=== PATIENT | male | born 1945 | race Caucasian/White ===

== ENCOUNTER 2023-11-14 09:57 | Outpatient (AMB) | payer MEDICARE, OTHER, SELFPAY ==
--- NOTE | 2023-11-14 10:10 | A.OFFPC_ITS ---
Vital Signs 11/14/23 10:20 Height 5 ft 11 in Weight 186 lb BMI 25.9 BP 130/70 Blood Pressure Location Rt brachial Position Sitting Respiration 16 Pulse 66 Pulse Source Pulse Oximeter Temp 97.7 F Temp Source Tympanic Pulse Oximetry (%) 96 Oxygen Delivery Method Room Air Intake Visit Reasons: est care Intake Note: establish care Allergies No Known Allergies Allergy (Verified 11/14/23 10:11) Medication List - Last Reconciled 11/14/23 by Jose Manuel Zapata MD timolol maleate 0.5% 1 drp ophthalmic-Right QAM Tobacco use date assessed: 11/14/23 Fall risk assessment: No Falls in past year Last assessed Fall Risk: 11/14/23 Dental Screening Dental Screen Date: 11/14/23 Did you have a dental visit in the last 12 months?: Yes Did you have a dental problem in the last 6 months where you did not have access to dental care?: No Was dental information given to patient?: Patient has dentist HPI est care HPI Details New Patient? ?? Prior PCP:?Dr Maxwell Last office visit/CPE:?5 yrs Acute issue(s):? Cerumen impactions R t thumb splinter ?? PMHx:? [place] R [facility] [place]. SurgHx:?Carpal tunnel, Lenses b/L - cataract surgeries. 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 Nonsmoker, EtOH 2 beers on weekends. HPI Comments History of Present Illness Details Documentation assistance for Jose Manuel Zapata MD, was provided by Prasanna Burgos,? Service Center Representative on 11/14/2023 at 10:43 AM EST. I, Dr. Zapata, have read, observed, and verified documentation. 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 1. Little interest or pleasure in doing things: not at all 2. Feeling down, depressed, or hopeless: not at all 3. Trouble falling or staying asleep, or sleeping too much: not at all 4. Feeling tired or having little energy: not at all 5. Poor appetite or overeating: not at all 6. Feeling bad about yourself - or that you are a failure or have let yourself or your family down: not at all 7. Trouble concentrating on things, such as reading the newspaper or watching television: not at all 8. Moving or speaking so slowly that other people could have noticed. Or the opposite - being so fidgety or restless that you have been moving around a lot more than usual: not at all 9. Thoughts that you would be better off or of hurting yourself in some way: not at all Total score: 0 Depression Screening Interpretation: Negative Depression Screening Done: Yes 23667 - PHQ-9 Billing: Yes Source: Developed by Drs. Catarino Castro, Sallie Morel, Luis F Mahoney and colleagues, with an educational nghia from [employer]. Thrive Questionnaire Date Thrive assessed: 11/14/23 I am a: Patient What is your living situation today?: I have a steady place to live Within the past 12 months, did the food you bought not last and you didn't have the money to get more?: Never true Within the past 12 months, did you worry whether your food would run out before you got money to buy more?: Never true Do you have trouble paying for medicines?: No Do you have trouble getting transportation to medical appointments?: No Do you have trouble paying your heating and electricity bill?: No Do you have trouble taking care of your child, family member or friend?: No Do you have trouble with day-to-day activities such as bathing, preparing meals, shopping, managing finances, etc.?: No Are you currently unemployed and looking for a job?: No Are you interested in more education?: No Please select the resources that you would like help with: None Currently or been in a relationship where the following occur: No concerns reported THRIVE Score: 0 AUDIT C Alcohol Use Questionnaire (AUDIT-C) 1. How often do you have a drink containing alcohol?: 2-3 times a week 2. How many drinks containing alcohol do you have on a typical day when you are drinking?: 1 or 2 3. How often do you have six or more drinks on one occasion?: Never Total Score: 3 Score Reviewed/Action Taken: Yes VANI-7 AMB Questionnaire VANI-7 Date VANI - 7 assessed: 11/14/23 Feeling nervous, anxious, or on edge: 0 = Not at all Not being able to stop or control worryin = Not at all Worrying too much about different things: 1 = Several days Trouble relaxin = Not at all Being so restless that it is hard to sit still: 0 = Not at all Becoming easily annoyed or irritable: 0 = Not at all Feeling afraid as if something awful might happen: 0 = Not at all Total VANI-7 score (0-4 normal; 5-9 mild; 10-14 moderate; 15-21 severe): 1 Source: Developed by Drs. Catarino Castro, Sallie Morel, Luis F Mahoney and colleagues, with an educational nghia from [employer]. VANI-7 Assessment Billing VANI-7 Assessment Tool: VANI-7 Assessment [id number] Review of Systems Const Denies chills, Denies fatigue, Denies fever(s), Denies headache(s) and Denies weakness ENT Denies dizziness and Denies headache(s) Card Denies chest pain, Denies lightheadedness, Denies dyspnea and Denies other (Palpitations) Resp Denies cough, Denies dyspnea, Denies wheezing and Denies other ( shortness of breath) Musc Denies numbness and Denies tingling Neuro Denies dizziness, Denies headache(s), Denies numbness, Denies tingling, Denies paresthesias and Denies weakness Psych Denies anxiety and Denies depression Endo Denies fatigue Aller/Immun Denies wheezing Physical exam (Primary Care) Tobacco/Smoking Status: Tobacco use Status Tobacco use date assessed 11/14/23 11/14/23 10:15 Patient Tobacco Use Status Never used Tobacco 11/14/23 10:15 e-Cigarette/Vaping Use Never Used 11/14/23 10:15 PHQ-9: PHQ-9 Score PHQ-9: Total score 0 11/14/23 10:19 Depression Screening Interpretation: Negative Thrive Assessment: Date of Thrive Assessment Date Thrive assessed 11/14/23 11/14/23 10:19 Currently or been in a relationship where the following occur: No concerns reported Const General: no acute distress and well developed Nutritional Appearance: well nourished Orientation/consciousness: patient oriented x3 HENMT Other: Mild wax impaction, bilateral Head: Yes normocephalic and Yes atraumatic Eyes General: appearance normal, both eyes and all related structures Pupils: Equal, round and reactive pupils present EOM: EOMs intact bilaterally Resp Effort & Inspection: normal respiratory effort Auscultation: clear to auscultation bilaterally Cardio Rate: regular rate Rhythm: regular rhythm Heart sounds: S1 normal heart sound present, S2 normal heart sound present, no gallops, no murmurs and no rubs Neuro General: patient oriented x3 and gait normal Cranial nerves: Yes Equal, round and reactive pupils present Psych Affect: normal affect Assessment and Plan Assessment & Plan (1) Cerumen impaction: Code(s): H61.20 - Impacted cerumen, unspecified ear Plan: Mild,?bilateral?cerumen?impaction?which?are?not?interfering?with?hearing He?can?use?Debrox?drops,?OTC He?will?let?me?know?if?worsening?or?not?improving (2) Splinter: Code(s): T14.8XXA - Other injury of unspecified body region, initial encounter Plan: Splinter?in?right?thumb?which?is?extremely?tiny?( > 1mm). Patient?declines?removal?at?this?time He?can?use?warm?Epson?salt?soaks Last?tetanus?shot?only?about?5?or?6?years?ago - up-to-date He?will?let?me?know?if?he?is?having?any?further?problem?with?this. 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 Wears?protective?gear Has?not?had?a?chest?x-ray?in?a?couple?of?years Chest?x-ray?ordered (6) Laboratory exam ordered as part of routine general medical examination: Code(s): Z00.00 - Encounter for general adult medical examination without abnormal findings Plan: Check?labs Orders: Orders Complete Blood Count Auto Diff Today Z00.00 - Encounter for general adult medical examination without abnormal findings Lipid Panel Today Z00.00 - Encounter for general adult medical examination without abnormal findings TSH reflex Free T4 Today Z00.00 - Encounter for general adult medical examination without abnormal findings UA and rflx microscopic Today Z00.00 - Encounter for general adult medical examination without abnormal findings Comprehensive [place]. Panel Fast Today Z00.00 - Encounter for general adult medical examination without abnormal findings Microalbumin, Random (w Creat) Today I10 - Essential (primary) hypertension Prostate Specific Antigen Scr Today Z12.5 - Encounter for screening for malignant neoplasm of prostate XR chest 2V Today Z77.090 - Contact with and (suspected) exposure to asbestos Coding Level of Care Code New Pt Level 3 (07244) Diagnoses Cerumen impaction H61.20 Splinter T14.8XXA History of cataract Z86.69 Glaucoma H40.9 Asbestos exposure Z77.090 Laboratory exam ordered as part of routine general medical examination Z00.00 Additional Codes VANI-7 Assessment Billing - VANI-7 Assessment Tool: VANI-7 Assessment [id number] ([id number])
[2023-11-14 10:20] VITALS: BP 130/70; PULSE 66; RESP 16; TEMP 36.5; O2SAT 96; BMI 25.9
== END 2023-11-14 10:50 | disposition home or self-care (01) ==
PROVIDERS: PCP Family Medicine; Visit Provider Family Medicine
DX: H61.23 Impacted cerumen, bilateral (principal); T14.8XXA Other injury of unspecified body region, initial encounter; Z86.69 Personal history of other diseases of the nervous system and sense organs; H40.9 Unspecified glaucoma; Z77.090 Contact with and (suspected) exposure to asbestos
CPT/HCPCS: 99203

== ENCOUNTER 2024-05-02 11:10 | Outpatient (REF) | payer MEDICARE, OTHER, SELFPAY ==
--- OUTSIDE RECORDS SUMMARY | 2024-05-02 13:08 | XMS_ITS | Clinical Summary ---
Author Organization [employer] Address [address] [place] [address] [address] [place] [address] Care Team Providers Care Damper Maker Name Role Phone PcpSamina Unassigned Primary Care Provider U navailable Allergies No known active allergies Medications meloxicam (Mobic) 15 MG tablet Take 15 mg by mouth. Active hydroCHLOROthiaz cliff (HYDRODiuril) 25 MG tablet Take 25 mg by mouth in the morning. Active Misc Natural Products (GLUCOSAMINE CHOND MSM FORMULA PO) Take by mouth. Active Immunizations Name Administration Dates Next Due TD (adult), 2 Lf tetanus tox oid, preservative free, adsorbed 11/14/2018,10/11/2008 Social History Tobacco Use Types Packs/Day Years Used Date Smoking Tobacco: Never Smokeless Tobacco: Never Tobacco Cessation:Counseling Given: Not Answered Alcohol Use Standard Drinks/Week Comments Yes 2 (1 standard drink = 0.6 oz pur e alcohol) weekly Sex and Gender Information Value Date Recorded Sex Assigned at Male 03/17/2022 10:29 AM EST Legal Sex Male 5:35 PM EDT Gender Identity Male 03/17/2022 10:29 AM EST Sexual Orientation Choose not to disclose 2022 12:35 PM EDT Plan of Treatment Health Maintenance Due Date Last Done Comments Depression Screening 1945 Lipid Panel 1945 SDOH Screening 1945 Alcohol/Substance Use Screening 1959 Hepatitis C Screening 11/18/1965 Pneumococcal Vaccine: 50+ Years (1 of 1 - PCV) 11/18/1997 Zoster Vaccines (1 of 2) 11/18/1997 DTaP/Tdap/Td Vaccines (1 - Tdap) 11/15/2018 11/14/2018, 10/11/2008 RSV Patients and Patients Aged 60 years or older (1 - 1-dose 75+ series) 11/18/2022 Dental Oral Exam 07/17/2023 01/14/2023, , 06/29/2021, Additional history exists Dental Prophylaxis 07/17/2023 01/14/2023, 1 , 06/29/2021, Additional history exists COVID-19 Vaccine ( season) 2023 01/01/2022, 07/09/2021, 02/06/2021, Additional history exists Influenza Vaccine (#1) 2023 Tobacco Screening 01/15/2024 01/14/2023 Dental X-Ray: Bitewings 01/16/2024 01/15/20 23, 01/04/2022, 12/25/2020, Additional history exists Dental X-Ray: Full Mouth 01/05/2025 022, 10/03/2012, 07/05/2008 HIB Vaccines Aged Out No longer eligi ble based on patient's age to complete this topic HPV Vaccines Aged Out No longer eligi ble based on patient's age to complete this topic Hepatitis A Vaccines Aged Out No long er eligible based on patient's age to complete this topic Hepatitis B Vaccines Aged Out No long er eligible based on patient's age to complete this topic IPV Vaccines Aged Out No longer eligi ble based on patient's age to complete this topic Meningococcal Vaccine Aged Out No nasim dinh eligible based on patient's age to complete this topic RSV under 20 months Aged Out No longe r eligible based on patient's age to complete this topic Rotavirus Vaccines Aged Out No longer eligible based on patient's age to complete this topic Procedures Procedure Name Priority Date/Time Associated Diagnosis Comments Full PROPHYLAXIS - ADULT Routine 023 8:30 AM EDT BITEWINGS - 4 RADIOGRAPHIC IMAGES Routine 01/14/2023 8:30 AM EDT PERIODIC ORAL EVALUATION - ESTABLISHED PATIENT Routine 01/14/2023 8:30 AM EDT DIAGNOSTIC - DIAGNOSTIC IMAGING - INTRAORAL - COMPREHENSIVE SERIES OF RADIOGRAPHIC IMAGES Routine 01/04/2022 12:00 AM EDT from Last 3 Months or Most Recently Relevant to Health Maintenance Insurance DENTAL - [facility] PARTIAL (MEDICAID) Care Teams Damper Maker Relationship Specialty Start Date End Date PcpSamina Unassigned PCP - General Family Medicine 07/19/22
--- OUTSIDE RECORDS SUMMARY | 2024-05-02 13:08 | XMS_ITS | Encounter Summary ---
Author Organization [employer] Address [address] [place] [address] [address] [place] [address] Care Team Providers Care Stock Tracer Name Role Phone Samina Chisholm Unassigned Primary Care Provider U navailable Encounter Details Date Type Department Care Team (Latest Contact Info) Description 06/29/2021 Abstract [facility] CONVERSIONS Dental, Provider, DDS Social History Tobacco Use Types Packs/Day Years Used Date Smoking Tobacco: Never Assessed Sex and Gender Information Value Date Recorded Sex Assigned at Male 03/17/2022 10:29 AM EST Legal Sex Male 5:35 PM EDT Gender Identity Male 03/17/2022 10:29 AM EST Sexual Orientation Choose not to disclose 2022 12:35 PM EDT documented as of this encounter Plan of Treatment Not on file documented as of this encounter Visit Diagnoses Not on filedocumented in this encounter Care Teams Stock Tracer Relationship Specialty Start Date End Date Samina Chisholmssigned PCP - General Family Medicine 07/19/22 documented as of this encounter
--- OUTSIDE RECORDS SUMMARY | 2024-05-02 13:08 | XMS_ITS | Encounter Summary ---
Author Organization [employer] Address [address] [place] [address] [address] [place] [address] Care Team Providers Care Flat Spring Assembler Name Role Phone PcpSamina Unassigned Primary Care Provider U navailable Encounter Details Date Type Department Care Team (Latest Contact Info) Description 12/25/2020 Abstract [facility] CONVERSIONS Dental, Provider, DDS Social [...] on filedocumented in this encounter Care Teams Flat Spring Assembler Relationship Specialty Start Date End Date Samina Chisholmssigned PCP - General Family Medicine 07/19/22 documented as of this encounter
[2024-05-02 14:28] LABS: MANUAL DIFF FLAG NO
[2024-05-02 14:41] LABS: Basophils Percent Auto 0.2 % (0-2); Eosinophils Absolute Auto 0.2 X10*3/uL (0.0-0.4); Eosinophils Percent Auto 3.8 % (0-4); Hematocrit 47.9 % (42.0-52.0); Hemoglobin 16.6 g/dl (14.0-18.0); Imm Gran Abs Auto 0.01 X10*3/uL (0.00-0.03); Imm Gran Pct Auto 0.2 % (0.0-0.4); Lymphocytes Absolute Auto 0.7 X10*3/uL (1.2-4.9); Lymphocytes Percent Auto 14.8 % (20-40); Mean Corpuscular HGB Conc 34.7 g/dl (31.0-36.0); Mean Corpuscular Hemoglobin 32.2 pg (27.0-33.0); Mean Platelet Volume 12.8 fL (9.4-12.4); Monocytes Absolute Auto 0.6 X10*3/uL (0.1-1.2); Monocytes Percent Auto 11.7 % (2-11); Neutrophils Absolute Auto 3.4 x10*3/uL (2.0-8.3); Neutrophils Percent Auto 69.3 % (45-73); Platelet Count 132 X10*3/uL (160-400); Red Blood Count 5.15 X10*6/uL (4.60-5.80); Red Cell Distribution Width 12.3 % (11.0-16.0); White Blood Count 4.9 X10*3/uL (4.8-10.8)
[2024-05-02 14:43] LABS: Appearance Urine Clear; Color Urine Yellow; Glucose Urine UA Negative (Negative); Leukocyte Esterase Urine Negative (Negative); Nitrite Urine Negative (Negative); Urine Blood Negative (Negative); Urine Ketones Negative (Negative); Urine Protein Negative (Neg-Trace)
[2024-05-02 15:03] LABS: Prostate Specific Antigen Scr 3.83 ng/mL (<0.05-4.0)
[2024-05-02 15:04] LABS: Alanine Aminotransferase 19 U/L (0-40); Albumin Level 3.8 g/dL (3.5-5.0); Alkaline Phosphatase 88 U/L (39-117); Anion Gap 9 (12-20); Aspartate Amino Transferase 22 U/L (5-37); Blood Urea Nitrogen 16 mg/dL (9-16); Carbon Dioxide 26 mmol/L (22-29); Chloride 109 mmol/L (96-108); Cholesterol 151 mg/dL (<200); Estimated Glomerular Filt Rate > 60; Glucose Fasting 86 mg/dL (60-99); HDL Cholesterol 59 mg/dL (>40); LDL Cholesterol Calculated 84 mg/dL (<100); Potassium 4.2 mmol/L (3.3-5.1); Sodium 140 mmol/L (135-145); Triglycerides 44 mg/dL (<150)
[2024-05-02 15:20] LABS: TSH reflex Free T4 2.11 uIU/mL (0.32-4.0)
[2024-05-02 19:45] LABS: Creatinine Urine 129.42 mg/dL; Microalbum/Creatinine Ratio Ur 6.1 ug/mg cr (<30)
== END 2024-05-02 11:11 | disposition home or self-care (01) ==
LOC: HO.WFDLDS 11:10
PROVIDERS: Visit Provider Family Medicine
DX: Z00.00 Encounter for general adult medical examination without abnormal findings (principal); Z12.5 Encounter for screening for malignant neoplasm of prostate; I10 Essential (primary) hypertension
CPT/HCPCS: 36415; 80053; 80061; 81003; 82043; 82570; 84153; 84443; 85025

== ENCOUNTER 2024-05-28 09:50 | Outpatient (AMB) | payer MEDICARE, OTHER, SELFPAY ==
--- NOTE | 2024-05-28 09:54 | A.OFFVIS_ITS ---
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 THE MEDICARE ANNUAL WELLNESS VISIT (AWV) IS A YEARLY APPOINTMENT WITH A HEALTH PROFESSIONAL TO IDENTIFY HEALTH RISKS AND HELP REDUCE THEM AND TO CREATE OR UPDATE A PERSONALIZED PREVENTION PLAN. DURING A MEDICARE AWV, HEALTH PROFESSIONALS SHOULD ALSO REVIEW ANY CURRENT OPIOID PRESCRIPTIONS, DETECT ANY COGNITIVE IMPAIRMENT, AND ESTABLISH OR UPDATE MEDICAL AND FAMILY HISTORY. 78 y/o M with glaucoma, prediabetes, PVD , bph SURGHX: Carpal tunnel, Lenses b/L - cataract surgeries. 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 Nonsmoker, EtOH 2 beers on weekends. HEALTH MAINTENANCE: SEE SCANNED PREVENTATIVE MEDICINE ASSESSMENT WITH PERSONALIZED HEALTH PLAN AND SCREENING SCHEDULE. COLON: has never had one done, cologaurd ordered VACCINES: Tdap 2020, flu,covid, rsv; due for pneumococcal and shingles AAA SCREEN:n/a EKG: NSR with occasional PVC CROW OF CARE: optho dr mcleod VISUAL ACUITY: glasses, active w/ optho routine visits HEARING SCREENING: wax but otherwise no issues ACP: does not have HCP/MOLST 5 wishes provided today DIETARY/NUTRITION/EXERCISE EDU PROVIDED: Y DURING THE COURSE OF THE VISIT THE PATIENT WAS EDUCATED AND COUNSELED ABOUT APPROPRIATE SCREENING AND PREVENTATIVE SERVICES. PATIENT INSTRUCTIONS WERE PROVIDED TO THE PATIENT IN WRITTEN OR ELECTRONIC FORMAT. I HAVE REVIEWED AND VERIFIED THE ABOVE INFORMATION. History of Present Illness - The patient is a 78-year-old male pres enting for his annual Medicare wellness visit. - He has a history of glaucoma with sust ained treatment, and recent follow-ups show improvement after regular rehab physician appointments. - He shows prediabetes signs with an A1c level of 6.1%, indicating the onset of glucose dysregulation. - Occasional PVCs have been noted in daryl dowd's EKG,offers no cardiac complaints - The patient is concerned about asbesto s-related risks due to past employment, requiring periodic chest X-rays. - He underwent bilateral hip replacement and reports discomfort impacting his ability to ride horses. - Right knee pain describes degenerative changes, with the patient declining surgical intervention due to mild symptomatic relief. - The patient mentions lower back pain a ssociated with heavy lifting, started 1 year ago; got better on its own and then returned w/o overt injury; aggravated during morning activities, which improves throughout the day. - Reports vascular concerns in the legs, discomfort with prolonged inactivity, has some tingling like sensation in his ankles bilat, present for years. - Prostate issues related to mild noctur ia and high-normal PSA, feels pelvic pressure. 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 - Exercises by walking occasionally, rep orts being generally active - Vegetarian, consuming primarily fish - Engages intellectually, involved in co nsulting related to [employer] science Health Maintenance - Recent influenza, COVID-19, and RSV va ccinations reported - Recommendations for shingles and pneum ococcal vaccines made - Discussion of colon cancer screening w ith Cologuard test, pending execution - Encouraged regular exercise and health y diet for diabetes risk management Review of Systems - Ophthalmologic: Reports ongoing glauco sd care - Cardiovascular: Denies dizziness, admi ts to occasional leg discomfort - Musculoskeletal: Reports hip and knee discomfort, lower back pain in mornings - Genitourinary: Reports nocturia and se nsation of pelvic pressure Physical Exam General: Well developed, well nourished, in no acute distress. Appears stated age. Head: Normocephalic, atraumatic. Eyes: Pupils are equal, round and reactive to light and accommodation. Conju nctivae are clear. Scleras nonicteric bilat Ears: cerumen impaction bilat, declined lavage. Nose: Patent, without discharge. Neck: Supple, no adenopathy or thyromegaly. Lungs: Clear to auscultation bilaterally. No rales, rhonchi or wheeze noted. Good air flow in all benavidez. Heart: Regular rate and rhythm. Abdomen: Bowel sounds present in all quadrants. The abdomen is soft, nontender, with no masses or organomegaly noted. No hernias are noted. : Deferred. Reviewed DANDY & recommendations Pulses: Peripheral pulses are equal and palpable bilaterally decreased, varicose veins/spider veins bilat lower legs, skin intact. Signs of peripheral vascular disease noted. Extremities: No clubbing, cyanosis nor edema is noted. Neurologic: Gait and station normal. Cranial Nerves 2-12 intact. Motor strength grossly symmetrical and intact. No sensory loss. Balance normal. IBANEZ x 4. No spinal tenderness w palpation. SLR negative bilat. Skin: No rashes, ulcers, or lesions noted. Turgor is good. Skin color is good. Hair and nails are without abnormalities. Raised skin lesions noted on trunk; referral to dermatology recommended. Psych: Normal eye contact, affect and mood appropriate, and normal interactions. Patient is alert and appropriate to context. Results Results: Labs 05/02/24 abnormal CBC, PSA high end of normal 3.83, hga1c 6.1% otherwise WNL - Labs: Hemoglobin A1c at 6.1% - EKG: Sinus rhythm with occasional PVCs Discussion Notes I discussed with the patient his ongoing management of glaucoma, including the importance of maintaining regular follow-ups. We reviewed his prediabetic status and emphasized dietary and activity modifications to prevent progression to type 2 diabetes mellitus. The occasional PVCs noted on the EKG were not addressed as they were asymptomatic. I advised chest X-rays for asbestos exposure monitoring given his previous occupational risk. We discussed the implications of his knee osteoarthritis, and the patient expressed a preference against surgical intervention. Check Xray. For his lower back pain, I've recommended obtaining spinal imaging and managing posture. There is a concern for his back pain correlates w/ BPH sx and high normal PSA - for prostate health, given his prostate-specific antigen levels and symptoms, referral to urology for further evaluation was recommended. Upon reviewing symptoms suggestive of vascular insufficiency, I advised consultation with a vascular specialist.. I emphasized the importance of completing at-home colon cancer screening. We agreed upon revisiting general health concerns in six months to reassess lab results, alongside any diagnostic findings from referred specialists. Assessment and Plan 1. Glaucoma: The patient's management in volves adherence to eye drop treatments and regular follow-ups, with past intervention including laser therapy to manage intraocular pressure and optic nerve health. 2. Prediabetes: Lifestyle changes, inclu ding exercise and dietary modifications, are recommended. The patient is advised to maintain regular follow-ups to monitor HbA1c levels and prevent progression to diabetes. 3. Occasional PVCs: The patient displaye d PVCs on EKG without symptomatic presentation, suggesting benign presentation not requiring intervention. 4. Asbestos exposure: Surveillance throu chest X-rays is recommended due to past occupational exposure to asbestos, with further monitoring deemed necessary. 5. Degenerative joint disease of the kne es: Patient reports knee discomfort primarily associated with prolonged sitting. Non-surgical options and monitoring of progression are the current approach. 6. Lower back pain: Pain following physi esme strain and aggravated by sleep posture is under evaluation with planned imaging to explore underlying causes. 7. Peripheral vascular disease: Lower li mb symptoms warrant referral to a vascular specialist for assessment and management, indicating potential arteriovenous dysfunction. 8. Potential prostate hypertrophy: Noctu stephanie and elevated PSA suggest further evaluation by a urologist to investigate potential prostate enlargement or malignancy. Patient Instructions - Schedule and attend the recommended im aging studies including chest, knee, and back X-rays. - Follow up with the vascular specialist for evaluation of leg discomfort. - Consult a urologist for prostate evalu ation and management. - Adhere to glaucoma management with pre scribed drops and rehab physician visits. - Incorporate healthful lifestyle change s, including dietary adjustments and increased physical activity. - Complete and return the Cologuard test for colon cancer screening. - Use earwax-softening drops as advised and consider ear cleaning if required. - Undergo dermatological evaluation for skin lesions. - Continue monitoring and managing knee and hip discomfort. RTO 6 months repeat labs 1 week before CBC and A1c. Consent Patient was informed and verbally consented to the use of an ambient scribe for clinic note documentation during this visit. An additional 40 minutes was spent addressing the problem(s) noted at todays visit. This includes time spent before the visit reviewing the chart, time spent during the visit, and time spent after the visit on documentation reviewing laboratory results, diagnostic imaging, medications, performing a medically necessary evaluation, counseling on diagnoses, care coordination, ordering appropriate tests, ordering appropriate medications, review of tests performed by other providers, reporting test results with the patient, communication with other healthcare providers. COUNTS INCLUDE 234 BEDS AT THE [facility] Medical History (Updated 05/28/24 @ 13:04 by Ashanti Sy, [facility]) Carpal tunnel syndrome Glaucoma Surgical History (Updated 11/14/23 @ 10:33 by Prasanna Burgos) H/O bilateral hip replacements Social History (Updated 11/14/23 @ 10:15 by Janet Carbajal 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 Current occupational exposures/hazards: Yes Cognitive needs: No Hearing needs: No Vision needs: Yes Questionnaire Medicare Wellness Checkup What [age]?: [age] What gender do you identify with?: male During the past 4 weeks, how much have you been bothered by emotional problems such as feeling anxious, depressed, irritable, sad or downhearted, and blue?: not at all During the past 4 weeks, has your physical & emotional health limited your social activities with family, friends, neighbors, or groups?: not at all During the past 4 weeks, how much bodily pain have you generally had?: no pain During the past 4 weeks, was someone available to help you if you needed & wanted help?: yes, as much as I wanted During the past 4 weeks, what was the hardest physical activity you could do for at least 2 minutes?: very heavy Can you get to places out of walking distance without help? (For eg., can you travel alone on buses, taxis or drive your car?): Yes Can you go shopping for groceries or clothes without someone's help?: Yes Can you prepare your own meals?: Yes Can you do your housework without help?: Yes Because of any health problems, do you need the help of another person with your personal care needs such as eating, bathing, dressing or getting around the house?: No Can you handle your own money without help?: Yes During the past 4 weeks, how would you rate your health in general?: excellent During the past 4 weeks how have things been going for you?: very well; could hardly better Are you having difficulties driving your car?: yes, often Do you always fasten your seat belt when you are in a car?: no During past 4 weeks, have you been bothered by the following: never: Falling or dizzy when standing up, Sexual problems?, Trouble eating well?, Teeth or denture problems?, Problems using the telephone? and Tiredness or fatigue? Have you fallen 2 or more times in the past year?: No Are you afraid of falling?: No Are you a smoker?: no During the past 4 weeks, how many drinks of wine, beer, or other alcoholic beverages did you have?: 1 drink or less per week Do you exercise for about 20 minutes 3 or more times a week?: yes, most of the time Have you been given information to help with the following?: no: Hazards in your house that might hurt you? and no: Keeping track of your medications? How often do you have trouble taking medicines the way you have been told to take them?: I always take medicine as prescribed How confident are you that you can control & manage most of your health problems?: very confident What is your race?: White Activity of Daily Living Bathing - sponge bath, tub bath or shower: receives no assistance (gets in/out by self, if usual bathing means Dressing - getting clothes from closets & drawers, including inner/outer garments & fasteners.: gets clothes & gets completely dressed without help Toileting - going to the 'toilet room' for urine/bowel elimination & cleaning self/arranging clothes: goes to toilet room, cleans self, arranges clothes without help Transfer: moves in & out of bed and chair without help (may use support object) Continence: controls urination/bowel movements completely by self Feeding: feeds self without help Total Score: 0 Information obtained from: patient Using telephone: independent Traveling: independent Shopping: independent Preparing meals: independent Housework: independent Taking medicine: independent Managing money: independent PHQ-9 Over the last 2 weeks, how often have you been bothered by any of the following problems? 1. Little interest or pleasure in doing things: not at all 2. Feeling down, depressed, or hopeless: not at all 3. Trouble falling or staying asleep, or sleeping too much: not at all 4. Feeling tired or having little energy: not at all 5. Poor appetite or overeating: not at all 6. Feeling bad about yourself - or that you are a failure or have let yourself or your family down: not at all 7. Trouble concentrating on things, such as reading the newspaper or watching television: not at all 8. Moving or speaking so slowly that other people could have noticed. Or the opposite - being so fidgety or restless that you have been moving around a lot more than usual: not at all 9. Thoughts that you would be better off or of hurting yourself in some way: not at all Total score: 0 Depression Screening Interpretation: Negative Depression Screening Done: Yes 66464 - PHQ-9 Billing: Yes Source: Developed by Drs. Catarino Castro, Sallie Morel, Luis F Mahoney and colleagues, with an educational nghia from [employer]. Physical Exam Vital Signs: Last Vital Signs Temp 97.1 F 05/28/24 10:18 Pulse 60 05/28/24 10:18 Resp 13 05/28/24 10:18 BP 142/80 H 05/28/24 10:18 Pulse Ox 95 05/28/24 10:18 Oxygen Delivery Method Room Air 05/28/24 10:18 BMI result Body Mass Index 26.5 Office Procedures EKG 20186-[id number], Complete Vision Screening Right Eye: 20/30 Left Eye: 20/15 Bilateral: 20/15 Color: Pass Corrected: Fail 92712 - Vision Screening Assessment & Plan Assessment & Plan (1) Encounter for subsequent annual wellness visit (AWV) in Medicare patient: Code(s): Z00.00 - Encounter for general adult medical examination without abnormal findings (2) ACP (advance care planning): Code(s): Z71.89 - Other specified counseling (3) Prediabetes: Code(s): R73.03 - Prediabetes (4) Asbestos exposure: Code(s): Z77.090 - Contact with and (suspected) exposure to asbestos (5) Right knee pain: Code(s): M25.561 - Pain in right knee Qualifiers: Chronicity: chronic Qualified Code(s): M25.561 - Pain in right knee; G89.29 - Other chronic pain (6) Low back pain: Code(s): M54.50 - Low back pain, unspecified Qualifiers: Back pain laterality: midline Chronicity: chronic Sciatica presence: without sciatica Qualified Code(s): M54.50 - Low back pain, unspecified; G89.29 - Other chronic pain (7) PVD (peripheral vascular disease): Code(s): I73.9 - Peripheral vascular disease, unspecified (8) BPH (benign prostatic hyperplasia): Code(s): N40.0 - Benign prostatic hyperplasia without lower urinary tract symptoms Qualifiers: Lower urinary tract symptom presence: symptoms present Lower urinary tract symptom detail: nocturia Qualified Code(s): N40.1 - Benign prostatic hyperplasia with lower urinary tract symptoms; R35.1 - Nocturia (9) Atypical pigmented skin lesion: Code(s): L81.9 - Disorder of pigmentation, unspecified (10) Laboratory exam ordered as part of routine general medical examination: Code(s): Z00.00 - Encounter for general adult medical examination without abnormal findings Plan . Orders: Orders XR chest 2V Today Z77.090 - Contact with and (suspected) exposure to asbestos XR knee RT 4V Today M25.561 - Pain in right knee XR lumbar spine 6V w bending Today G89.29 - Other chronic pain, M54.50 - Low back pain, unspecified Hemoglobin A1c 6 Months Z00.00 - Encounter for general adult medical examination without abnormal findings AMB EKG-In Office Today Z13.6 - Encounter for screening for cardiovascular disorders Complete Blood Count no Diff 6 Months Z00.00 - Encounter for general adult medical examination without abnormal findings Referrals Vascular Surgery Referral I73.9 - Peripheral vascular disease, unspecified Urology Referral G89.29 - Other chronic pain, M54.50 - Low back pain, unspecified, N40.0 - Benign prostatic hyperplasia without lower urinary tract symptoms Cologuard Test Z12.11 - Encounter for screening for malignant neoplasm of colon, Z12.12 - Encounter for screening for malignant neoplasm of rectum Dermatology Referral L81.9 - Disorder of pigmentation, unspecified Patient Instructions: Health screenings for men You should visit your health care provider regularly, even if you feel healthy. The purpose of these visits is to: Screen for medical issues Assess your risk for future medical problems Encourage a healthy lifestyle Update vaccinations and other preventive care services Help you get to know your provider in case of an illness Information Even if you feel fine, you should still see your provider for regular checkups. These visits can help you avoid problems in the future. For example, the only way to find out if you have high blood pressure is to have it checked regularly. High blood sugar and high cholesterol level also may not have any symptoms in the early stages. Simple blood tests can check for these conditions. There are specific times when you should see your provider or receive specific health screenings. The [place] Preventive Services Task Force publishes a list of recommended screenings. Below are screening guidelines for men ages 40 to 64. BLOOD PRESSURE SCREENING Have your blood pressure checked at least once every year. Watch for blood pressure screenings in your area. Ask your provider if you can stop in to have your blood pressure checked. Ask your provider if you need your blood pressure checked more often if: You have diabetes, heart disease, kidney problems, or are overweight or have certain other health conditions You have a first-degree relative with high blood pressure You are Black Your blood pressure top number is from 120 to 129 mm Hg, or the bottom number is from 70 to 79 mm Hg If the top number is 130 mm Hg or greater or the bottom number is 80 mm Hg or greater, this is considered stage 1 hypertension. Schedule an appointment with your provider to learn how you can lower your blood pressure. Effects of age on blood pressure CHOLESTEROL SCREENING Cholesterol screening should begin at age 35 for men with no known risk factors for coronary heart disease. Repeat cholesterol screening should take place: Every 5 years for men with normal cholesterol levels More often if changes occur in lifestyle (including weight gain and diet) More often if you have diabetes, heart disease, kidney problems, or certain other conditions COLORECTAL CANCER SCREENING If you are under age 45, talk to your provider about getting screened. You may need to be screened if you have a strong family history of colon cancer or polyps. Screening may also be considered if you have risk factors such as a history of inflammatory bowel disease or polyps. If you are age 45 to 75, you should be screened for colorectal cancer. There are several screening tests available: A stool-based fecal occult blood (gFOBT) or fecal immunochemical test (FIT) every year A stool sDNA test every 1 to 3 years Flexible sigmoidoscopy every 5 years or every 10 years with stool testing FIT done every year CT colonography (virtual colonoscopy) every 5 years Colonoscopy every 10 years You may need a colonoscopy more often if you have risk factors for colorectal cancer, such as: Ulcerative colitis A personal or family history of colorectal cancer A history of growths in your colon called adenomatous polyps DENTAL EXAM Go to the dentist once or twice every year for an exam and cleaning. Your dentist will evaluate if you have a need for more frequent visits. DIABETES SCREENING All adults who do not have risk factors for diabetes should be screened starting at age 35 and repeated every 3 years. If you have other risk factors for diabetes, such as a first degree relative with diabetes, overweight or obesity, high blood pressure, prediabetes, or a history of heart disease, you may be tested more often. If you are overweight and have other risk factors, such as high blood pressure and are planning to become , screening is recommended. EYE EXAM Have an eye exam every 2 to 4 years ages 40 to 54 and every 1 to 3 years ages 55 to 64. Your provider may recommend more frequent eye exams if you have vision problems or glaucoma risk. Have an eye exam that includes an examination of your retina (back of your eye) at least every year if you have diabetes. IMMUNIZATIONS Commonly needed vaccines include: Flu shot: get one every year COVID-19 vaccine: ask your provider what is best for you Tetanus-diphtheria and acellular pertussis (Tdap) vaccine: have as one of your tetanus-diphtheria vaccines if you did not receive it as an adolescent Tetanus-diphtheria: have a booster (or Tdap) every 10 years Varicella vaccine: receive 2 doses if you never had chickenpox or the varicella vaccine and were born in 1979 or after Hepatitis B vaccine: receive 2, 3, or 4 doses, depending on your exact circumstances, if you did not receive these as a child or adolescent, until age 59 Shingles (herpes zoster) vaccine: at or after age 50 Ask your provider if you should receive other immunizations, especially if you have certain medical conditions, such as diabetes or are at increased risk for some diseases such as pneumonia. INFECTIOUS DISEASE SCREENING Screening for hepatitis C: all adults ages 18 to 79 should get a one-time test for hepatitis C. Screening for human immunodeficiency virus (HIV): all people ages 15 to 65 should get a one-time test for HIV. Depending on your lifestyle and medical history, you may need to be screened for infections such as syphilis, chlamydia, and other infections. LUNG CANCER SCREENING You should have an annual screening for lung cancer with low-dose computed tomography (LDCT) if: You are age 50 to 80 years AND You have a 20 pack-year smoking history AND You currently smoke or have quit within the past 15 years OSTEOPOROSIS SCREENING If you are age 50 to 64 and have risk factors for osteoporosis, you should discuss screening with your provider. Risk factors can include long-term steroid use, low body weight, smoking, heavy alcohol use, having a fracture after age 50, or a family history of hip fracture or osteoporosis. Osteoporosis PHYSICAL EXAM All adults should visit their provider from time to time, even if they are healthy. The purpose of these visits is to: Screen for diseases Assess risk of future medical problems Encourage a healthy lifestyle Update vaccinations and other preventive care services Maintain a relationship with a provider in case of an illness Your height, weight, and body mass index (BMI) should be checked at every exam. During your exam, your provider may ask you about: Depression and anxiety Diet and exercise Alcohol and tobacco use Safety, such as use of seat belts and smoke detectors Your medicines and risk for interactions PROSTATE CANCER SCREENING If you're 55 through 69 years old, before having the test, talk to your provider about the pros and cons of having a PSA test. Ask about: Whether screening decreases your chance of dying from prostate cancer. Whether there is any harm from prostate cancer screening, such as side effects from testing or overtreatment of cancer when discovered. Whether you have a higher risk of prostate cancer than others. If you are age 55 or younger, screening is not generally recommended. You should talk with your provider about if you have a higher risk for prostate cancer. Risk factors include: Having a family history of prostate cancer (especially a brother or father) Being If you choose to be tested, the PSA blood test is repeated over time (yearly or less often), though the best frequency is not known. Prostate examinations are no longer routinely done on men with no symptoms. Prostate cancer SKIN EXAM Your provider may check your skin for signs of skin cancer, especially if you're at high risk. People at high risk include those who have had skin cancer before, have close relatives with skin cancer, or have a weakened immune system. TESTICULAR EXAM The US Preventive Services Task Force (USPSTF) now recommends against performing testicular self-exams. Doing testicular self-exams has been shown to have little to no benefit. Quality Reporting (2020) Adult ([facility] 138/2//69) Smoking risk assessment performed?: Yes Patient Tobacco Use Status: Never used Tobacco Depression screening performed: Yes Screen Results: Yes Negative screen Systolic BP not done?: No Diastolic BP not done?: No BMI screening not done: No Sexual Activity Screening ([facility] 153) Sexually active?: Yes Immunizations ([facility] 147, 117) Annual Influenza Vaccine: Yes Measles Antibody Test: No Mumps Antibody Test: No Rubella Antibody Test: No Varicella Antibody Test: No Anti Hepatitis A IgG Antigen test: No Anti Hepatitis B Virus Surface Ab test: No Fall Risk Screening ([facility] 139) Last assessed Fall Risk: 05/28/24 Fall risk assessment: No Falls in past year Dementia Assessment ([facility] 149) Cognitive assessment recorded: Yes Assessment of cognition with standardized tool: Yes Depression/Bipolar (159/160/161/177) PHQ-9: Total score: 0 Ophthalmol:Cataracts Visual Acuity (133) Visual acuity exam performed: Yes (see results) Coding Level of Care Code Medicare Subsequent (G0439) Est Pt Level 5 (60150) Diagnoses Encounter for subsequent annual wellness visit (AWV) in Medicare patient Z00.00 ACP (advance care planning) Z71.89 Prediabetes R73.03 Asbestos exposure Z77.090 Chronic pain of right knee M25.561; G89.29 Chronicity: chronic Chronic midline low back pain without sciatica M54.50; G89.29 Back pain laterality: midline Chronicity: chronic Sciatica presence: without sciatica PVD (peripheral vascular disease) I73.9 Benign prostatic hyperplasia with nocturia N40.1; R35.1 Lower urinary tract symptom presence: symptoms present Lower urinary tract symptom detail: nocturia Atypical pigmented skin lesion L81.9 Laboratory exam ordered as part of routine general medical examination Z00.00 CPT Codes Advance Care Planning - Advance Care Planning discussion: On file, no changes ([id number]) Advance Care Planning - Time spent: 1-15 minutes, not on file ([id number]) EKG - CPT: 57383-[id number], Complete ([id number]) Vision Screening - Vision Screenin - Vision Screening ([id number]) Additional Codes PHQ-9 - 95964 - PHQ-9 Billing: Yes ([id number]) Advance Care Planning Advance Care Planning discussion: On file, no changes Date of discussion: 05/28/24 Who was present: self Forms completed: Health Care Proxy, MOLST, Comfort care/DNR and Living will Time spent: 1-15 minutes, not on file Actual minutes spent: 5
[2024-05-28 10:18] VITALS: BP 142/80; PULSE 60; RESP 13; TEMP 36.2; O2SAT 95; BMI 26.5
--- OUTSIDE RECORDS SUMMARY | 2024-05-28 10:44 | XMS_ITS | Clinical Summary ---
Author Organization [employer] Address [address] [place] [address] [address] [place] [address] Care Team Providers Care Public Information Specialist Name Role Phone PcpSamina Unassigned Primary Care [...] ESTABLISHED PATIENT Routine 01/14/2023 8:30 AM EDT INTRAORAL - COMPLETE SERIES OF RADIOGRAPHIC IMAGES Routine 01/04/2022 12:00 AM EDT from Last 3 Months or Most Recently Relevant to Health Maintenance Insurance DENTAL - HSN PARTIAL (MEDICAID) Care Teams Public Information Specialist Relationship Specialty Start Date End Date PcpSamina Unassigned PCP - General Family Medicine 07/19/22
--- OUTSIDE RECORDS SUMMARY | 2024-05-28 10:44 | XMS_ITS | Encounter Summary ---
Author Organization [employer] Address [address] [place] [address] [address] [place] [address] Care Team Providers Care Striker Off Name Role Phone Samina Chisholm Unassigned Primary [...] on filedocumented in this encounter Care Teams Striker Off Relationship Specialty Start Date End Date Samina Chisholmssigned PCP - General Family Medicine 07/19/22 documented as of this encounter
--- OUTSIDE RECORDS SUMMARY | 2024-05-28 10:44 | XMS_ITS | Encounter Summary ---
Author Organization [employer] Address [address] [place] [address] [address] [place] [address] Care Team Providers Care Vulcan Crewmember Name Role Phone Saimna Chisholm Unassigned Primary Care Provider U navailable [...] on filedocumented in this encounter Care Teams Vulcan Crewmember Relationship Specialty Start Date End Date Samina Chisholmssigned PCP - General Family Medicine 07/19/22 documented as of this encounter
== END 2024-05-28 11:11 | disposition home or self-care (01) ==
PROVIDERS: PCP Family Medicine; Visit Provider Nurse Practitioner Family
DX: Z00.00 Encounter for general adult medical examination without abnormal findings (principal); I73.9 Peripheral vascular disease, unspecified; R73.03 Prediabetes; Z71.89 Other specified counseling; Z77.090 Contact with and (suspected) exposure to asbestos; M54.50 Low back pain, unspecified; M25.561 Pain in right knee; G89.29 Other chronic pain; N40.1 Benign prostatic hyperplasia with lower urinary tract symptoms; R35.1 Nocturia; L81.9 Disorder of pigmentation, unspecified; Z01.00 Encounter for examination of eyes and vision without abnormal findings

== ENCOUNTER → 2024-05-28 09:50 | Outpatient (BNVA) | payer MEDICARE, OTHER, SELFPAY | PROVIDERS: PCP Family Medicine; Visit Provider Nurse Practitioner Family | DX: Z00.00 Encounter for general adult medical examination without abnormal findings (principal); Z71.89 Other specified counseling; R73.03 Prediabetes; Z77.090 Contact with and (suspected) exposure to asbestos; M25.561 Pain in right knee; G89.29 Other chronic pain; M54.50 Low back pain, unspecified; I73.9 Peripheral vascular disease, unspecified; N40.1 Benign prostatic hyperplasia with lower urinary tract symptoms; R35.1 Nocturia; L81.9 Disorder of pigmentation, unspecified | CPT/HCPCS: 93005; 96127; 99212 ==

== ENCOUNTER 2024-06-05 09:30 | Outpatient (AMB) | payer MEDICARE, OTHER, SELFPAY ==
[2024-06-05 09:32] VITALS: BMI 26.5
--- NOTE | 2024-06-05 09:32 | MHC.OFFVIS ---
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 Pt states both are equal, states he gets hot and achy ankles and feet. 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 Complaints include discomfort, swelling of lower extremities, fatigue, and heaviness of the lower extremities. It has been affecting their daily activities including working and sitting. It is noted in bilateral legs. He is not a cigarette smoker and is a diabetic, not on any medications. He states he generally is very active but in the last year has been more sedentary due to work. He has not had any injuries to his legs. He states he has complaints of some warmth in his feet that occur after being sedentary or after driving. Patient denies any previous venous surgery or injections. Patient denies any history of DVT/ PE. Patient denies any history of phlebitis. Trial of compression includes - nothing currently They now present for vascular evaluation regarding their varicose veins. 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 Current occupational exposures/hazards: Yes Cognitive needs: No Hearing needs: No Vision needs: Yes Review of Systems Const Reports as per HPI and Denies weakness ENT Reports Normal hearing present and Denies dizziness Card Reports as per HPI, Denies chest pain, Denies chest pain at rest, Denies chest pain with activity, Denies dyspnea and Denies dyspnea on exertion Resp Reports as per HPI, Denies cough, Denies dyspnea and Denies dyspnea on exertion GI Reports as per HPI, Denies abdominal pain, Denies nausea and Denies vomiting Musc Denies numbness Skin/Breast Reports as per HPI, Denies erythema and Denies wounds Neuro Reports Normal hearing present, Denies dizziness, Denies numbness, Denies Sensory deficit (Neuro) and Denies weakness Psych Reports no additional complaints Endo Reports no additional complaints Physical Exam Vital Signs: BMI result Body Mass Index 26.5 Neuro Cranial nerves: Yes Normal hearing present Sensory Exam: No Sensory deficit (Neuro) Extrem Other: Bilateral lower extremities: Discoloration noted around the ankles with significant amount of spider veins. Trace peripheral edema noted. Palpable DP and PT pulses. CEAP: C - 3/4 E - primary A - superficial P - reflux Assessment & Plan Assessment & Plan (1) Varicose veins of both lower extremities with inflammation: Code(s): I83.11 - Varicose veins of right lower extremity with inflammation; I83.12 - Varicose veins of left lower extremity with inflammation Category: Medical Plan: Nolberto is presenting today on a referral from his PCP for concerns of bilateral lower extremity swelling and discomfort, progressing over the last year or so. In short, the patient has evidence of venous insufficiency. I have discussed the pathophysiology with the patient. In addition I have provided informational material regarding venous disease to the patient. We have discussed conservative measures including compression, elevation, and exercise. We are able to provide him with compression stockings today. I have taken the liberty of ordering venous insufficiency testing with the patient. They will follow up with me after testing. The patient had an opportunity to ask questions regarding the treatment plan. All questions were answered. Imaging studies, laboratory studies and physical exam results were discussed and reviewed in detail. No major barriers to understanding were identified. The patient expressed understanding and agreement with the above treatment plan. The patient is aware they should contact our office by phone for worsening of the current condition or the appearance of new symptoms. Thank you for allowing me to participate in the vascular care of this patient. If you have any questions or concerns regarding the treatment for the above condition please do not hesitate to contact me. The office telephone contact is [phone]. This note is constructed using voice recognition software. While every effort has been made to ensure accuracy, human resources project manager errors may have been included. Thank you for allowing me to participate in the care of your patient. Yours sincerely, DONA Albright Orders: Orders US venous duplex LE BI 1 Week I83.11 - Varicose veins of right lower extremity with inflammation, I83.12 - Varicose veins of left lower extremity with inflammation Coding Level of Care Code New Pt Level 4 (90955) Diagnoses Varicose veins of both lower extremities with inflammation I83.11; I83.12
== END 2024-06-05 10:15 | disposition home or self-care (01) ==
LOC: HO.HVS 09:30
PROVIDERS: PCP Family Medicine; Visit Provider Physician Assistant Surgical
DX: I83.11 Varicose veins of right lower extremity with inflammation (principal); I83.12 Varicose veins of left lower extremity with inflammation
CPT/HCPCS: 99204

== ENCOUNTER → 2024-06-05 09:30 | Outpatient (BNVA) | payer MEDICARE, OTHER, SELFPAY | PROVIDERS: PCP Family Medicine; Visit Provider Physician Assistant Surgical | DX: I83.11 Varicose veins of right lower extremity with inflammation (principal); I83.12 Varicose veins of left lower extremity with inflammation | CPT/HCPCS: 99202 ==

== ENCOUNTER 2024-06-25 08:28 | Outpatient (REF) | payer MEDICARE, OTHER, SELFPAY ==
--- NOTE | ~2024-06-25 | US_ITS ---
EXAMINATION: US LOWER EXTREMITY VENOUS (REFLUX EXAM), BILATERAL CLINICAL INFORMATION: Varices. COMPARISON: None. TECHNIQUE: Color flow triplex imaging and compression Doppler was performed to evaluate both the deep and the superficial systems bilaterally. To evaluate the superficial system, the examination was performed in the upright position. Color-flow Doppler ultrasound and compression ultrasound were utilized. In addition, maneuvers were utilized to demonstrate reflux. FINDINGS: 1. DEEP VENOUS ULTRASOUND OF THE RIGHT LOWER EXTREMITY: Common Femoral Vein: Compressible, normal respiratory variation and augmented flow. Femoral Vein: Compressible, normal color flow and augmentation. Popliteal Vein: Compressible, normal augmentation. Small saphenous vein mid segment demonstrated chronic/old thrombus. Deep Reflux: There is no evidence of reflux in the deep system in either the common femoral vein, superficial femoral or the popliteal vein. There is no evidence of a Nice's cyst. 2. SUPERFICIAL ULTRASOUND WITH DOPPLER OF RIGHT LOWER EXTREMITY: GREAT SAPHENOUS VEIN: Saphenofemoral Junction: 0.7 cm; Reflux: 0 ms Proximal Thigh: 0.4 cm; Reflux: 0 ms Mid Thigh: 0.3 cm; Reflux: 0 ms Distal Thigh: 0.3 cm; Reflux: 1232 ms At Knee: 0.3 cm; Reflux: More than 2876 ms Proximal Calf: 0.2 cm; Reflux: 0 ms Mid Calf: 0.1 cm; Reflux: 612 ms Distal Calf: 0.3 cm; Reflux: 0 ms DUPLICATED MEDIAL GREAT SAPHENOUS VEIN: Diameter: None imaged Reflux: NA DUPLICATED LATERAL GREAT SAPHENOUS VEIN: Diameter: None imaged Reflux: NA SMALL SAPHENOUS VEIN: Saphenopopliteal Junction: 0.4 cm; Reflux: 0 ms Proximal: 0.2 cm; Reflux: 900 ms Distal: 0.2 cm; Reflux: 0 ms VEIN OF GIACOMINI: Size: 0.2 cm. Reflux: NA PERFORATORS: Location: Calf. Size: 0.2 cm. Reflux: NA VARICOSITIES: Location: Mid and distal calf. Size: 0.3 cm. Reflux: NA 3. DEEP VENOUS ULTRASOUND OF THE LEFT LOWER EXTREMITY: Common Femoral Vein: Compressible, normal respiratory variation and augmented flow. Femoral Vein: Compressible, normal color flow and augmentation. Popliteal Vein: Compressible, normal augmentation. Deep Reflux: There is no evidence of reflux in the deep system in either the common femoral vein, superficial femoral or the popliteal vein. There is no evidence of a Nice's cyst. 4. SUPERFICIAL ULTRASOUND WITH DOPPLER OF LEFT LOWER EXTREMITY: GREAT SAPHENOUS VEIN: Saphenofemoral Junction: 0.8 cm; Reflux: 0 ms Proximal Thigh: 0.3 cm; Reflux: 0 ms Mid Thigh: 0.3 cm; Reflux: 0 ms Distal Thigh: 0.2 cm; Reflux: More than 2832 ms At Knee: 0.2 cm; Reflux: More than 2940 ms Proximal Calf: 0.2 cm; Reflux: More than 3080 ms Mid Calf: 0.2 cm; Reflux: more than 2908 ms Distal Calf: 0.3 cm; Reflux: More than 2856 ms DUPLICATED MEDIAL GREAT SAPHENOUS VEIN: Diameter: None imaged Reflux: NA DUPLICATED LATERAL GREAT SAPHENOUS VEIN: Diameter: None imaged. Reflux: NA SMALL SAPHENOUS VEIN: Saphenopopliteal Junction: 0.1 cm; Reflux: 0 ms Proximal: 0.2 cm; Reflux: 0 ms Distal: 0.2 cm; Reflux: 0 ms VEIN OF GIACOMINI: Size: NA Reflux: NA PERFORATORS: Location: Distal calf. Size: 0.2 cm. Reflux: NA VARICOSITIES: Location: None Imaged Size: NA Reflux: NA US/US venous insuf bilat IMPRESSION: Right: Venous insufficiency, great saphenous vein above the knee and distal calf. Venous insufficiency, small saphenous vein in the mid calf. Perforators hand varices without reflux. Left: Venous insufficiency, great saphenous vein above the knee to the ankle. Perforators without reflux. Electronically signed by: Lawrence Hall MD 06/25/2024 02:49 PM EDT
--- NOTE | ~2024-06-25 | XR_ITS ---
CLINICAL HISTORY: M25.561 - Pain in right knee 4 views right knee Comparison: None Findings: No fractures, subluxations or dislocations. Moderate joint space narrowing medial knee compartment with enthesophytes Equivocal 2 mm intra-articular loose bodies at the level of the tibial spine Normal patellar alignment. No suprapatellar joint effusion.No prepatellar soft tissue swelling. Normal bone mineralization and soft tissues. No unusual radiopaque foreign body. Impression: 1. Moderate joint space narrowing medial knee compartment with enthesophytes 2. Equivocal 2 mm intra-articular loose bodies near the tibial spine. This document has been electronically signed by: Sebastian Rubio MD on 06/26/2024 10:31:24
--- NOTE | ~2024-06-25 | XR_ITS ---
CLINICAL HISTORY: Z77.090 - Contact with and (suspected) exposure to asbestos 2 view chest x-ray. Comparison: None Findings: Increased lung volumes. Lungs are clear. No pneumothorax or pleural effusion. Heart size normal. No passive venous congestion. No midline shift or tracheal deviation. No acute fracture. Impression: 1. Hyperinflated lungs. This document has been electronically signed by: Sebastian Rubio MD on 06/26/2024 09:10:52
--- NOTE | ~2024-06-25 | XR_ITS ---
CLINICAL HISTORY: M54.50 - Low back pain, unspecified 7 views lumbar spine Comparison: None Findings: No acute compression fractures. 2 mm retrolisthesis L2 relative to L3 Extensive degenerative facet arthropathy throughout. Mild disc space narrowing L5-S1 with small anterior vertebral body enthesophytes. Uncovertebral body spurs L3 through L5. No spondylolysis Lordotic curvature is preserved. Bilateral total hip arthroplasties. Mild calcified atherosclerotic disease. Sacroiliac joints unremarkable. Minimal translation L2-L3 level on the extension views Impression: 1. No compression fractures. Degenerative spondylosis and listhesis. 2. Minimal translation L2-3 level on the extension views This document has been electronically signed by: Sebastian Rubio MD on 06/26/2024 10:47:24
--- OUTSIDE RECORDS SUMMARY | 2024-06-25 09:00 | XMS_ITS | Clinical Summary ---
Author Organization [employer] Address [address] [place] [address] [address] [place] [address] Care Team Providers Care Autos Disassembler Name Role Phone PcpSamina Unassigned Primary Care [...] DENTAL - HSN PARTIAL (MEDICAID) Care Teams Autos Disassembler Relationship Specialty Start Date End Date PcpSamina Unassigned PCP - General Family Medicine 07/19/22
--- OUTSIDE RECORDS SUMMARY | 2024-06-25 09:00 | XMS_ITS | Encounter Summary ---
Author Organization [employer] Address [address] [place] [address] [address] [place] [address] Care Team Providers Care Zinc Skimmer Name Role Phone Samina Chisholm Unassigned Primary [...] on filedocumented in this encounter Care Teams Zinc Skimmer Relationship Specialty Start Date End Date Samina Chisholmssigned PCP - General Family Medicine 07/19/22 documented as of this encounter
--- OUTSIDE RECORDS SUMMARY | 2024-06-25 09:00 | XMS_ITS | Encounter Summary ---
Author Organization [employer] Address [address] [place] [address] [address] [place] [address] Care Team Providers Care Cloth Stretcher Name Role Phone PcpSamina Unassigned Primary Care [...] on filedocumented in this encounter Care Teams Cloth Stretcher Relationship Specialty Start Date End Date Samina Chisholmssigned PCP - General Family Medicine 07/19/22 documented as of this encounter
== END 2024-06-25 08:29 | disposition home or self-care (01) ==
LOC: HO.US 08:28
PROVIDERS: PCP Family Medicine; Visit Provider Physician Assistant Surgical
DX: I83.11 Varicose veins of right lower extremity with inflammation (principal); I83.12 Varicose veins of left lower extremity with inflammation; M25.561 Pain in right knee; M54.50 Low back pain, unspecified; G89.29 Other chronic pain; Z77.090 Contact with and (suspected) exposure to asbestos
CPT/HCPCS: 71046; 72114; 73564; 93970

== ENCOUNTER → 2024-06-25 08:31 | Outpatient (BNV) | payer MEDICARE, OTHER, SELFPAY | PROVIDERS: PCP Family Medicine; Visit Provider Radiology Diagnostic Radiology | DX: I83.11 Varicose veins of right lower extremity with inflammation (principal); I83.12 Varicose veins of left lower extremity with inflammation | CPT/HCPCS: 93970 ==

== ENCOUNTER 2024-07-19 07:57 | Outpatient (AMB) | payer MEDICARE, OTHER, SELFPAY ==
--- OUTSIDE RECORDS SUMMARY | 2024-07-19 08:04 | XMS_ITS | Clinical Summary ---
Author Organization [employer] Address [address] [place] [address] [address] [place] [address] Care Team Providers Care Interpreter Name Role Phone PcpSamina Unassigned Primary Care [...] DENTAL - HSN PARTIAL (MEDICAID) Care Teams Interpreter Relationship Specialty Start Date End Date PcpSamina Unassigned PCP - General Family Medicine 07/19/22
--- OUTSIDE RECORDS SUMMARY | 2024-07-19 08:04 | XMS_ITS | Encounter Summary ---
Author Organization [employer] Address [address] [place] [address] [address] [place] [address] Care Team Providers Care Rougher For Cement Name Role Phone Samina Chisholm Unassigned Primary [...] on filedocumented in this encounter Care Teams Rougher For Cement Relationship Specialty Start Date End Date Samina Chisholmssigned PCP - General Family Medicine 07/19/22 documented as of this encounter
--- OUTSIDE RECORDS SUMMARY | 2024-07-19 08:04 | XMS_ITS | Encounter Summary ---
Author Organization [employer] Address [address] [place] [address] [address] [place] [address] Care Team Providers Care Maintenance Pipefitter Name Role Phone Samina Chisholm Unassigned Primary [...] on filedocumented in this encounter Care Teams Maintenance Pipefitter Relationship Specialty Start Date End Date Samina Chisholmssigned PCP - General Family Medicine 07/19/22 documented as of this encounter
--- NOTE | 2024-07-19 08:05 | MHC.OFFVIS ---
Intake Visit Reasons: BPH with LUTS Intake Note: New patient presents today for initial visit for BPH with LUTS Urology Medication:none Blood Thinner:none Antibiotic Allergies:none PVR:0ml Allergies No Known Allergies Allergy (Verified 07/19/24 08:06) HPI Comments Details: Nolberto is a very pleasant 78-year-old male patient of Dr. Zapata. He has a past medical history of carpal tunnel syndrome and glaucoma. He presents to the office today as a new patient for longstanding history of urinary issues. In discussion with the patient today he reports having recently established PCP care as he had not been following up with any medical personnel for many years. He reports discussing intermittent episodes of pelvic pressure sensation typically at night that he has been experiencing for a few years now and recommendations were made for urology referral for further assessment evaluation. JOSH performed smooth, no masses or nodules palpated. We discussed at length potential causes of lower urinary tract symptoms patient was experiencing. He denies any bothersome urinary issues or concerns throughout the day however feels at night is when he experiences lack of pressure to urinary stream as well as pelvic area pressure. He describes these episodes as intermittent. He otherwise denies urinary urgency, urinary frequency, incontinence, nocturia, hematuria, dysuria, foul smelling urine, changes to urinary stream, flank pain, fever, and or chills. He reports that although he experiences these urinary issues from time to time he does feel he is managing his symptoms well independently. We discussed further treatment options of these urological concerns as well as risks and benefits of these interventions. In review of patient's chart it appears PSA 05/15 3.8. We discussed obtaining retroperitoneal ultrasound for further assessment evaluation. In office urinalysis results reviewed with the patient today. PVR 0 mL. He otherwise offers no other issues or concerns at this time. Plan Ultrasound evaluation of the kidneys and bladder is indicated to further assess prostate size and rule out anomalies. No concerning findings were noted during the rectal exam. Current symptoms do not require distressing intervention, though pharmacotherapy for BPH may be considered if symptoms become bothersome. Continued monitoring is suggested. Patient was informed and verbally consented to the use of an ambient scribe for clinic note documentation during this visit. Discussion Notes I discussed with the patient the presentation being suggestive of benign prostatic hyperplasia, noting a PSA of 3.8. We talked about initiating a renal and bladder ultrasound to further assess prostate size and appearance, ruling out potential anomalies. I explained the typical presentation and consideration of BPH and the benign nature of his current symptoms. We discussed that his symptoms are not severely impacting his lifestyle, and there is no immediate need for pharmacological or surgical intervention, though pharmacotherapy can be an option if symptomatic worsening occurs. We agreed to monitor symptoms and return for further discussion post-ultrasound, consenting to this plan of conservative management unless future symptoms suggest a need for enhanced treatment or intervention. 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 Current occupational exposures/hazards: Yes Cognitive needs: No Hearing needs: No Vision needs: Yes Review of Systems Const All systems reviewed & are unremarkable except as noted in HPI and below Physical Exam Const General: cooperative, healthy appearing, comfortable, no acute distress, well developed, alert and awake Orientation/consciousness: patient oriented x3 Limitations: no limitations HEENT Head: Yes normal to inspection, Yes normocephalic and Yes atraumatic Ears: hearing grossly normal bilaterally Eyes General: appearance normal, both eyes and all related structures Neck Neck: Yes normal visual inspection and Yes trachea midline Chest Chest palpation & inspection: normal inspection of the chest Resp Effort & Inspection: normal respiratory effort and able to speak in complete sentences Cardio Rate: regular rate GI Inspection: Yes normal to inspection General: Yes no CVA tenderness Back/Spine/Pelvis Back: no CVA tenderness Skin General skin exam: no rashes or lesions noted Neuro General: patient oriented x3 Extrem General: Yes normal to inspection Psych Appearance: grossly normal and well kempt Mental Status: mental status grossly normal Speech and movement: Normal speech and movement present and Clear speech present Affect: normal affect Attitude: cooperative Thought process: Normal thought process present Thought content: Normal thought content present Insight: Fair insight present (Psych) Judgement: Fair judgement present (Psych) Office Procedures Post Void Residual Post Residual Void Post Void Residual (PVR): 0 [id number] Void Residual by ultrasound Results AMB Urinalysis, Automated UA Leukoctes 0 Aren/uL Last Edit by Nichole Brasher on 07/19/24 08:45 UA Nitrite Last Edit by Nichole Brasher on 07/19/24 08:45 UA Urobilinogen 0.2 mg/dL Last Edit by Nichole Brasher on 07/19/24 08:45 UA Protein 0 mg/dL Last Edit by Nichole Brasher on 07/19/24 08:45 UA pH 6.5 Last Edit by Nichole Brasher on 07/19/24 08:45 UA Blood 0 Avinash/uL Last Edit by Sittercitymarissa on 07/19/24 08:45 UA Specific [place] 1.015 Last Edit by Gamzeegonzalo Brasher on 07/19/24 08:45 UA Ketone Last Edit by Nichole Brasher on 07/19/24 08:45 UA Bilirubin 0 mg/dL Last Edit by Gamzeegonzalo Brasher on 07/19/24 08:45 UA Glucose 0 mg/dL Last Edit by Gamzeegonzalo Brasher on 07/19/24 08:45 Assessment & Plan Assessment & Plan (1) BPH (benign prostatic hyperplasia): Code(s): N40.0 - Benign prostatic hyperplasia without lower urinary tract symptoms Category: Medical Qualifiers: Lower urinary tract symptom presence: symptoms present Lower urinary tract symptom detail: nocturia Qualified Code(s): N40.1 - Benign prostatic hyperplasia with lower urinary tract symptoms; R35.1 - Nocturia Plan In office urinalysis results reviewed with the patient today; as noted above. PVR 0 mL. JOSH performed. Recent PSA results reviewed with the patient today; as noted above. We discussed potential causes of lower urinary tract symptoms patient was experiencing as well as further treatment options and risks and benefits of these treatment options. Will obtain retroperitoneal ultrasound for further assessment evaluation. Patient does not feel urinary issues are bothersome at this time. Follow-up in 3 months with imaging and PVR; or sooner with any issues, concerns, and or questions. Patient Instructions: The patient had an opportunity to ask questions regarding the treatment plan. All questions were answered. Physical exam, labs, and imaging were discussed and reviewed in detail. As well as risks, benefits, and discussion of treatment choices. No major barriers to understanding were identified. The patient expressed understanding and agreement with the above treatment plan. The patient was made aware they should contact our office by phone for worsening of their current condition, the appearance of new symptoms, or with any questions or concerns. Compliance is encouraged with any medications and follow up testing that is ordered. It is a privilege to be allowed the opportunity to participate in? your urological care.? Again, if you have any questions or concerns If you have any questions or concerns please do not hesitate to contact me. The office is [phone]. This note is constructed using voice recognition software. While every effort has been made to ensure accuracy varnishing unit tool setter errors may have been included. Yours sincerely, VALERIY Platt Coding Level of Care Code New Pt Level 3 (57225) Diagnoses Benign prostatic hyperplasia with nocturia N40.1; R35.1 Lower urinary tract symptom presence: symptoms present Lower urinary tract symptom detail: nocturia CPT Codes Post Residual Void - PVR CPT Code: 09129-[id number] Void Residual by ultrasound ([id number])
== END 2024-07-19 08:44 | disposition home or self-care (01) ==
LOC: HO.HUSH 07:58
PROVIDERS: PCP Family Medicine; Visit Provider Nurse Practitioner Family
DX: N40.1 Benign prostatic hyperplasia with lower urinary tract symptoms (principal); R35.1 Nocturia; Z13.9 Encounter for screening, unspecified
CPT/HCPCS: 99203

== ENCOUNTER → 2024-07-19 07:57 | Outpatient (BNVA) | payer MEDICARE, OTHER, SELFPAY | PROVIDERS: PCP Family Medicine; Visit Provider Nurse Practitioner Family | DX: N40.1 Benign prostatic hyperplasia with lower urinary tract symptoms (principal); R35.1 Nocturia; N39.8 Other specified disorders of urinary system | CPT/HCPCS: 51798; 81003; 99202 ==

== ENCOUNTER 2024-07-31 08:56 | Outpatient (AMB) | payer MEDICARE, OTHER, SELFPAY ==
--- NOTE | 2024-07-31 09:04 | MHC.OFFVIS ---
Intake Visit Reasons: follow up s/p 06/25/24 Intake Note: Patient presents for US follow up. No complaints. Accompanied by: Self / Same As Patient Allergies No Known Allergies Allergy (Verified 07/31/24 09:04) [facility] follow up s/p 06/25/24: Details: Very pleasant 78-year-old gentleman presents for follow-up regarding venous insufficiency. He had originally seen us due to evaluation by his primary care regarding peripheral vascular disease. He reports that he has had continued issues on his lower extremities right more so than left. He has had a trial of compression with no significant relief. He now presents for follow-up with venous insufficiency testing. 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 Current occupational exposures/hazards: Yes Cognitive needs: No Hearing needs: No Vision needs: Yes Review of Systems Const Reports as per HPI ENT Reports no additional complaints Card Denies chest pain, Denies chest pain at rest and Denies chest pain with activity Resp Denies chest congestion and Denies cough GI Reports no additional complaints Musc Details: pain over varicosities, aching of lower extremities, swelling, cramping, heaviness and tiredness, itching Denies abnormal gait Skin/Breast Reports pruritus and Denies wounds Neuro Reports no additional complaints and Denies abnormal gait Psych Denies no additional complaints Physical Exam Const General: cooperative, healthy appearing and comfortable Orientation/consciousness: oriented to person, oriented to place and oriented to time Neck Carotids: no bruits Chest Chest palpation & inspection: normal inspection of the chest and normal palpation of entire chest wall Resp Effort & Inspection: normal respiratory effort and able to speak in complete sentences Cardio Rate: regular rate Heart sounds: S1 normal heart sound present and S2 normal heart sound present Peripheral pulses: Peripheral pulses 2+ throughout GI Inspection: Yes normal to inspection Skin Other: +2 edema, large rope-like varicosities greater than 4 mm CEAP Classification C4 - skin color changes Ep - Etiology Primary As - superficial veins P - reflux General skin exam: dry skin Neuro General: oriented to person, oriented to place and oriented to time Extrem Right lower extremity: full ROM, normal capillary refill and edema Left lower extremity: full ROM, normal capillary refill and edema Psych Mental Status: mental status grossly normal Results Reviewed Results Reviewed: Brief summary of venous insufficiency testing is as follows: right great saphenous vein: Positive right small saphenous vein: negative right accessory vein: none present left great saphenous vein: Positive left small saphenous vein: negative left accessory vein: none present Please note there is no evidence of any venous aneurysms or significant tortuosity Assessment & Plan Assessment & Plan (1) Varicose veins of right lower extremity with inflammation: Code(s): I83.11 - Varicose veins of right lower extremity with inflammation Category: Medical Plan: This patient has varicose veins with inflammation. They continue to be a source of discomfort for the patient. The patient has tried conservative treatment with compression, leg elevation and exercise program for over 3 months time. They have been compliant with all treatment. This has provided minimal relief for the patient. I do not anticipate this course of treatment will alter the underlying etiology. The patient has been scheduled for lower extremity venous treatment inclusive of --- right great saphenous vein Cyanoacralate ablation. Risks, benefits, and complications of this procedure has been discussed in detail with the patient including but not limited to bleeding, infection, and the development of a DVT. The patient has demonstrated a clear understanding and has consented. We will schedule the patient as soon as possible. Thank you for allowing us to participate in this patient's care. If there are any questions or concerns please do not hesitate to contact us. Coding Level of Care Code Est Pt Level 4 (18882) Diagnoses Varicose veins of right lower extremity with inflammation I83.11
--- OUTSIDE RECORDS SUMMARY | 2024-07-31 09:21 | XMS_ITS | Encounter Summary ---
Author Organization [employer] Address [address] [place] [address] Care Team Providers Care Christian Science Nurse Name Role Phone Samina Chisholm Unassradha Primary Care Provider U navailable Encounter Details [...] on filedocumented in this encounter Care Teams Christian Science Nurse Relationship Specialty Start Date End Date Samina Chisholm PCP - General Family Medicine 07/19/22 documented as of this encounter
--- OUTSIDE RECORDS SUMMARY | 2024-07-31 09:21 | XMS_ITS | Clinical Summary ---
Author Organization [employer] Address [address] [place] [address] Care Team Providers Care Campaign Specialist Name Role Phone PcpSamina Unassigned Primary [...] DENTAL - HSN PARTIAL (MEDICAID) Care Teams Campaign Specialist Relationship Specialty Start Date End Date PcpSamina Unassigned PCP - General Family Medicine 07/19/22
--- OUTSIDE RECORDS SUMMARY | 2024-07-31 09:21 | XMS_ITS | Encounter Summary ---
Author Organization [employer] Address [address] [place] [address] Care Team Providers Care Heating Systems Installer Name Role Phone Samina Chisholm Unassradha Primary [...] on filedocumented in this encounter Care Teams Heating Systems Installer Relationship Specialty Start Date End Date Samina Chisholm PCP - General Family Medicine 07/19/22 documented as of this encounter
== END 2024-07-31 09:32 | disposition home or self-care (01) ==
LOC: HO.HVS 08:57
PROVIDERS: PCP Family Medicine; Visit Provider Surgery Vascular Surgery
DX: I83.11 Varicose veins of right lower extremity with inflammation (principal)
CPT/HCPCS: 99214

== ENCOUNTER → 2024-07-31 08:56 | Outpatient (BNVA) | payer MEDICARE, OTHER, SELFPAY | PROVIDERS: PCP Family Medicine; Visit Provider Surgery Vascular Surgery | DX: I83.11 Varicose veins of right lower extremity with inflammation (principal) | CPT/HCPCS: 99212 ==

== ENCOUNTER 2024-09-28 09:58 | Outpatient (REF) | payer MEDICARE, OTHER, SELFPAY ==
--- NOTE | ~2024-09-28 | US_ITS ---
CLINICAL HISTORY: N40.1 - Benign prostatic hyperplasia with lower urinary tract symptoms US Renal Comparison: None provided Findings: Right kidney normal size and echotexture, 10.7 cm length. Left kidney normal size and echotexture, 10.9 cm length. Questionable peripelvic cyst measures 1 cm with posterior wall calcification. No hydronephrosis of either kidney. Normal color Doppler. Urinary bladder is unremarkable. Prevoid volume 609.8 mL. Postvoid volume 435.9 mL. The prostate is enlarged. 4.5 x 3.7 x 5.9 cm, 52.4 mL volume Left ureteral jet not visualized. IMPRESSION: 1. No hydronephrosis 2. Postvoid residual volume of 435.9 mL 3. Enlarged prostate This document has been electronically signed by: Antonio Barnett MD, PHD on 09/28/2024 23:24:49
--- OUTSIDE RECORDS SUMMARY | 2024-09-28 10:23 | XMS_ITS | Encounter Summary ---
Author Organization [employer] Address [address] [place] [address] Care Team Providers Care Cheese Pancake Roller Name Role Phone Samina Chisholm Unassradha Primary [...] on filedocumented in this encounter Care Teams Cheese Pancake Roller Relationship Specialty Start Date End Date Samina Chisholmssradha PCP - General Family Medicine 07/19/22 documented as of this encounter
== END 2024-09-28 09:59 | disposition home or self-care (01) ==
LOC: HO.US 09:58
PROVIDERS: PCP Family Medicine; Visit Provider Nurse Practitioner Family
DX: N40.1 Benign prostatic hyperplasia with lower urinary tract symptoms (principal); R35.1 Nocturia
CPT/HCPCS: 76770

== ENCOUNTER → 2024-09-28 10:00 | Outpatient (BNV) | payer MEDICARE, OTHER, SELFPAY | PROVIDERS: PCP Family Medicine; Visit Provider General Practice | DX: N40.1 Benign prostatic hyperplasia with lower urinary tract symptoms (principal) | CPT/HCPCS: 76770 ==

== ENCOUNTER 2024-09-28 14:56 | Outpatient (AMB) | payer MEDICARE, OTHER, SELFPAY ==
--- NOTE | 2024-09-28 15:09 | MHC.PC.OV ---
Intake Visit Reasons: new development on his right knee - pain Intake Note: Telehealth for new development on his right knee px and popping sound when walking x 2 days. Nuclear Criticality Safety Engineer Required: No Allergies No Known Allergies Allergy (Verified 09/28/24 16:15) Medication List - Last Reconciled 09/28/24 by VERN Bee-REAGAN latanoprost 0.005% drps ophthalmic (eye) Tobacco use date assessed: 09/28/24 Fall risk assessment: No Falls in past year Last assessed Fall Risk: 09/28/24 Dental Screening Dental Screen Date: 09/28/24 Did you have a dental visit in the last 12 months?: Yes Did you have a dental problem in the last 6 months where you did not have access to dental care?: No Was dental information given to patient?: Patient has dentist HPI HPI Comments History of Present Illness Details History of Present Illness - The patient is a 78-year-old male presenting with concerns about right knee pain and instability. - Onset approximately 10 days ago, severe pain in the right knee. - Inability to support weight when rising to stand. - Notable popping sound during stair climbing. - Pain reduces with motion but remains present. - June x-rays showed intra-articular loose bodies, moderate joint space narrowing. Review of Systems - Musculoskeletal: Reports sudden right knee pain, instability, and audible popping with stairs. - Vascular: Denies current ankle edema. - Integumentary: Reports raised skin lesions on trunk. Results - Imaging: June x-ray of the right knee showed intra-articular loose bodies and moderate joint space narrowing. Assessment and Plan 1. Intra-articular loose bodies and moderate joint space narrowing - Advise advanced imaging and specialized orthopedic consultation. - Urgent care referral for evaluation and surgical assessment. 2. Ankle edema - Prior vascular evaluation completed; edema resolved. 3. Raised skin lesions - Referral to dermatology for consultation scheduled. 4. BPH - Active workup w [facility] Uro Imaging done today Results pending Telehealth Attestation The information documented in this note is accurate and based on the telehealth visit conducted on this date. The patient has been explained that this is an interactive (audio/video) telehealth encounter and what that consists of. The patient understands and wishes to proceed. Paybubble platform was used. Total time spent caring for the patient today was 25 minutes. This includes time spent before the visit reviewing the chart, time spent during the visit, and time spent after the visit on documentation, reviewing laboratory results, diagnostic imaging, medications, performing a medically necessary evaluation, counseling on diagnoses, care coordination, ordering appropriate tests, ordering appropriate medications, review of tests performed by other providers, reporting test results with the patient, communication with other healthcare providers. 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 Catarino Castro, Sallie Morel, Luis F Mahoney and colleagues, with an educational nghia from [employer]. Physical exam (Primary Care) Tobacco/Smoking Status: Tobacco use Status Tobacco use date assessed 09/28/24 09/28/24 15:11 Patient Tobacco Use Status Never used Tobacco 09/28/24 15:11 e-Cigarette/Vaping Use Never Used 09/28/24 15:11 Thrive Assessment: Date of Thrive Assessment Date Thrive assessed 11/14/23 09/28/24 15:11 Telehealth Telehealth Telehealth Platform: [facility] Location of provider rendering services: practice address Location of patient: address on file Patient Identification confirmed using: Name, : Yes Telehealth method: voice only Patient verbally consented to treatment: Yes Patient verbally consented to billing insurance company: Yes Patient informed of any privacy concerns related to visit: Yes Minutes spent on Phone/Video with Pt.: 14 Results Reviewed Results Reviewed: [address] [address] XRay Report Signed Patient: Nolberto Parker MR#: [id number] : 1945 Acct:[id number] Age/Sex: 78 / M ADM Date: 06/25/24 Loc: HO.US Attending Dr: Victoria Bajwa PA-C Ordering Physician: Ashanti Sy Date of Service: 06/25/24 Procedure(s): XR knee RT 4V Accession Number(s): [id number] cc: Jose Manuel Zapata MD; Ashanti Sy~ CLINICAL HISTORY: M25.561 - Pain in right knee 4 views right knee Comparison: None Findings: No fractures, subluxations or dislocations. Moderate joint space narrowing medial knee compartment with enthesophytes Equivocal 2 mm intra-articular loose bodies at the level of the tibial spine Normal patellar alignment. No suprapatellar joint effusion.No prepatellar soft tissue swelling. Normal bone mineralization and soft tissues. No unusual radiopaque foreign body. Impression: 1. Moderate joint space narrowing medial knee compartment with enthesophytes 2. Equivocal 2 mm intra-articular loose bodies near the tibial spine. This document has been electronically signed by: Sebastian Rubio MD on 06/26/2024 10:31:24 Coding Level of Care Code Tele Est Pt Level 4 (64990) Complex EM visit Add On G2211 Diagnoses Popping of right knee joint R29.898 Chronic pain of right knee M25.561; G89.29 Chronicity: chronic PVD (peripheral vascular disease) I73.9 Benign prostatic hyperplasia with nocturia N40.1; R35.1 Lower urinary tract symptom presence: symptoms present Lower urinary tract symptom detail: nocturia Atypical pigmented skin lesion L81.9 Assessment & Plan Assessment & Plan (1) Popping of right knee joint: Code(s): R29.898 - Other symptoms and signs involving the musculoskeletal system Category: Medical (2) Right knee pain: Code(s): M25.561 - Pain in right knee Category: Medical Qualifiers: Chronicity: chronic Qualified Code(s): M25.561 - Pain in right knee; G89.29 - Other chronic pain (3) PVD (peripheral vascular disease): Code(s): I73.9 - Peripheral vascular disease, unspecified Category: Medical (4) BPH (benign prostatic hyperplasia): Code(s): N40.0 - Benign prostatic hyperplasia without lower urinary tract symptoms Category: Medical Qualifiers: Lower urinary tract symptom presence: symptoms present Lower urinary tract symptom detail: nocturia Qualified Code(s): N40.1 - Benign prostatic hyperplasia with lower urinary tract symptoms; R35.1 - Nocturia (5) Atypical pigmented skin lesion: Code(s): L81.9 - Disorder of pigmentation, unspecified Category: Medical Plan .
== END 2024-09-28 16:34 | disposition home or self-care (01) ==
LOC: HO.HMCFM 14:56
PROVIDERS: PCP Family Medicine; Visit Provider Nurse Practitioner Family
DX: M25.561 Pain in right knee (principal); R29.898 Other symptoms and signs involving the musculoskeletal system; G89.29 Other chronic pain; I73.9 Peripheral vascular disease, unspecified; N40.1 Benign prostatic hyperplasia with lower urinary tract symptoms; R35.1 Nocturia; L81.9 Disorder of pigmentation, unspecified

== ENCOUNTER 2024-10-15 07:52 | Outpatient (AMB) | payer MEDICARE, OTHER, SELFPAY ==
--- OUTSIDE RECORDS SUMMARY | 2024-10-15 07:55 | XMS_ITS | Encounter Summary ---
Author Organization [employer] Address [address] [place] [address] Care Team Providers Care Glazing Department Supervisor Name Role Phone Samina Chisholm Unassradha Primary [...] on filedocumented in this encounter Care Teams Glazing Department Supervisor Relationship Specialty Start Date End Date Samina Chisholmssradha PCP - General Family Medicine 07/19/22 documented as of this encounter
--- NOTE | 2024-10-15 07:57 | MHC.OFFVIS ---
Intake Visit Reasons: 3m/US/PVR(set) Intake Note: Patient is present for 3M/US/PVR Urology Medication:NONE Antibiotic Allergy:NONE Blood Thinner:NONE TODAY'S PVR:0ML'S Home Restoration Service Supervisor Required: No Allergies No Known Allergies Allergy (Verified 10/15/24 11:04) Medication List - Last Reconciled 10/15/24 by VALERIY Platt finasteride 5 mg PO DAILY 90 days latanoprost 0.005% drps ophthalmic (eye) HPI Comments Details: Nolberto is a very pleasant 78-year-old male patient of Dr. Zapata. He has a past medical history of carpal tunnel syndrome and glaucoma. He presents to the office today for follow-up. Of note, patient was seen approximately 2 months ago as a new patient for longstanding history of urinary issues at which time a retroperitoneal ultrasound was ordered for further assessment evaluation. These results were reviewed and communicated with the patient today. 10/12 Bilateral kidneys are normal in size and echotexture. Questionable peripelvic cysts measuring 1 cm with posterior wall calcifications. No hydronephrosis of either kidney. The urinary bladder is unremarkable. Prostate is enlarged measuring 52 mL. Patient with increased postvoid residual on day of imaging. In office urinalysis results reviewed with the patient today. PVR 0 mL. He does continue to experience intermittent episodes of bladder pressure as well as nocturia. During last office visit JOSH was performed and noted smooth, no masses or nodules palpated. We discussed at length potential causes of lower urinary tract symptoms patient was experiencing. He denies any bothersome urinary issues or concerns throughout the day however feels at night is when he experiences lack of pressure to urinary stream as well as pelvic area pressure. He describes these episodes as intermittent. He otherwise denies urinary urgency, urinary frequency, incontinence, hematuria, dysuria, foul smelling urine, changes to urinary stream, flank pain, fever, and or chills. He reports that although he experiences these urinary issues from time to time he does feel he is managing his symptoms well independently. We discussed further treatment options of these urological concerns as well as risks and benefits of these interventions. In review of patient's chart it appears PSA 05/15 3.8. We did discussed prostate enlargement and trial of finasteride. He otherwise offers no other issues or concerns at this time. 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 Current occupational exposures/hazards: Yes Cognitive needs: No Hearing needs: No Vision needs: Yes Review of Systems Const All systems reviewed & are unremarkable except as noted in HPI and below Physical Exam Const General: cooperative, healthy appearing, comfortable, no acute distress, well developed, alert and awake Orientation/consciousness: patient oriented x3 Limitations: no limitations HEENT Head: Yes normal to inspection, Yes normocephalic and Yes atraumatic Ears: hearing grossly normal bilaterally Eyes General: appearance normal, both eyes and all related structures Neck Neck: Yes normal visual inspection and Yes trachea midline Chest Chest palpation & inspection: normal inspection of the chest Resp Effort & Inspection: normal respiratory effort and able to speak in complete sentences Cardio Rate: regular rate GI Inspection: Yes normal to inspection General: Yes no CVA tenderness Back/Spine/Pelvis Back: no CVA tenderness Skin General skin exam: no rashes or lesions noted Neuro General: patient oriented x3 Extrem General: Yes normal to inspection Psych Appearance: grossly normal and well kempt Mental Status: mental status grossly normal Speech and movement: Normal speech and movement present and Clear speech present Affect: normal affect Attitude: cooperative Thought process: Normal thought process present Thought content: Normal thought content present Insight: Fair insight present (Psych) Judgement: Fair judgement present (Psych) Office Procedures Post Void Residual Post Residual Void Post Void Residual (PVR): 0 [id number] Void Residual by ultrasound Results AMB Urinalysis, Automated UA Leukoctes 0 Aren/uL Last Edit by RICCARDO So on 10/15/24 08:20 UA Nitrite Negative Last Edit by RICCARDO So on 10/15/24 08:20 UA Urobilinogen 0.2 mg/dL Last Edit by RICCARDO So on 10/15/24 08:20 UA Protein 15 mg/dL Last Edit by RICCARDO So on 10/15/24 08:20 UA pH 6.0 Last Edit by RICCARDO So on 10/15/24 08:20 UA Blood 0 Avinash/uL Last Edit by RICCARDO So on 10/15/24 08:20 UA Specific [place] 1.025 Last Edit by RICCARDO So on 10/15/24 08:20 UA Ketone Negative Last Edit by RICCARDO So on 10/15/24 08:20 UA Bilirubin 0 mg/dL Last Edit by RICCARDO So on 10/15/24 08:20 UA Glucose 0 mg/dL Last Edit by RICCARDO So on 10/15/24 08:20 Results Reviewed Results Reviewed: Laboratory Last Values Urine pH (Auto) 6.0 10/15/24 08:19 Specific [place] (Auto) 1.025 10/15/24 08:19 Urine Protein (Auto) 15 mg/dL 10/15/24 08:19 Glucose (UA)(Auto) 0 mg/dL 10/15/24 08:19 Urine Ketones (Auto) Negative 10/15/24 08:19 Urine Blood (Auto) 0 Avinash/uL 10/15/24 08:19 Urine Nitrite (Auto) Negative 10/15/24 08:19 Urine Bilirubin (Auto) 0 mg/dL 10/15/24 08:19 Urine Urobilinogen (Auto) 0.2 mg/dL 10/15/24 08:19 Leukocyte Esterase (Auto) 0 Aren/uL 10/15/24 08:19 Date of Service: 09/28/24 Procedure(s): US retroperitoneal comp Findings: Right kidney normal size and echotexture, 10.7 cm length. Left kidney normal size and echotexture, 10.9 cm length. Questionable peripelvic cyst measures 1 cm with posterior wall calcification. No hydronephrosis of either kidney. Normal color Doppler. Urinary bladder is unremarkable. Prevoid volume 609.8 mL. Postvoid volume 435.9 mL. The prostate is enlarged. 4.5 x 3.7 x 5.9 cm, 52.4 mL volume Left ureteral jet not visualized. IMPRESSION: 1. No hydronephrosis 2. Postvoid residual volume of 435.9 mL 3. Enlarged prostate. Assessment & Plan Assessment & Plan (1) BPH (benign prostatic hyperplasia): Code(s): N40.0 - Benign prostatic hyperplasia without lower urinary tract symptoms Category: Medical Qualifiers: Lower urinary tract symptom detail: nocturia Lower urinary tract symptom presence: symptoms present Qualified Code(s): N40.1 - Benign prostatic hyperplasia with lower urinary tract symptoms; R35.1 - Nocturia (2) Enlarged prostate: Code(s): N40.0 - Benign prostatic hyperplasia without lower urinary tract symptoms Category: Medical Plan In office urinalysis results reviewed the patient today; as noted above. PVR 0 mL. Recent retroperitoneal ultrasound results reviewed with the patient today; as noted above. We discussed prostate enlargement as well as lower urinary tract symptoms he experiences from time to time. We discussed further treatment options and risks and benefits of these treatment options. Start finasteride as discussed and prescribed. All questions were answered. Will obtain PSA in 6 months. Follow-up in 6 months with PSA and PVR; or sooner with any issues, concerns, and or questions. Orders: Orders Prostate Specific Antigen 6 Months N40.0 - Benign prostatic hyperplasia without lower urinary tract symptoms, N40.1 - Benign prostatic hyperplasia with lower urinary tract symptoms, R35.1 - Nocturia AMB Urinalysis Automated Today Z13.9 - Encounter for screening, unspecified Medications: New finasteride 5 mg PO DAILY 90 tabs 3RF 90 days N32.0 - Bladder-neck obstruction Patient Instructions: The patient had an opportunity to ask questions regarding the treatment plan. All questions were answered. Physical exam, labs, and imaging were discussed and reviewed in detail. As well as risks, benefits, and discussion of treatment choices. No major barriers to understanding were identified. The patient expressed understanding and agreement with the above treatment plan. The patient was made aware they should contact our office by phone for worsening of their current condition, the appearance of new symptoms, or with any questions or concerns. Compliance is encouraged with any medications and follow up testing that is ordered. It is a privilege to be allowed the opportunity to participate in? your urological care.? Again, if you have any questions or concerns If you have any questions or concerns please do not hesitate to contact me. The office is [phone]. This note is constructed using voice recognition software. While every effort has been made to ensure accuracy chief nursing officer errors may have been included. Yours sincerely, VERN Platt-REAGAN Coding Level of Care Code Est Pt Level 4 (76018) Diagnoses Benign prostatic hyperplasia with nocturia N40.1; R35.1 Lower urinary tract symptom detail: nocturia Lower urinary tract symptom presence: symptoms present Enlarged prostate N40.0 CPT Codes Post Residual Void - PVR CPT Code: 11140-Mkrd Void Residual by ultrasound ([id number])
== END 2024-10-15 08:31 | disposition home or self-care (01) ==
LOC: HO.HUSH 07:53
PROVIDERS: PCP Family Medicine; Visit Provider Nurse Practitioner Family
DX: N40.1 Benign prostatic hyperplasia with lower urinary tract symptoms (principal); R35.1 Nocturia; N40.0 Benign prostatic hyperplasia without lower urinary tract symptoms; Z13.9 Encounter for screening, unspecified
CPT/HCPCS: 99214

== ENCOUNTER → 2024-10-15 07:52 | Outpatient (BNVA) | payer MEDICARE, OTHER, SELFPAY | PROVIDERS: PCP Family Medicine; Visit Provider Nurse Practitioner Family | DX: N40.1 Benign prostatic hyperplasia with lower urinary tract symptoms (principal); R35.1 Nocturia; R39.9 Unspecified symptoms and signs involving the genitourinary system; Z13.9 Encounter for screening, unspecified | CPT/HCPCS: 51798; 81003; 99212 ==

== ENCOUNTER 2024-11-23 15:34 | Outpatient (REF) | payer MEDICARE, OTHER, SELFPAY ==
--- OUTSIDE RECORDS SUMMARY | 2024-11-23 15:36 | XMS_ITS | Encounter Summary ---
Author Organization [employer] Address [address] [facility] [address] [place] [address] Care Team Providers Care Exterior Designer Name Role Phone Samina Chisholm Unassradha Primary [...] on filedocumented in this encounter Care Teams Exterior Designer Relationship Specialty Start Date End Date Samina Chisholmssradha PCP - General Family Medicine 07/19/22 documented as of this encounter
--- OUTSIDE RECORDS SUMMARY | 2024-11-23 15:36 | XMS_ITS | Clinical Summary ---
Author Organization [employer] Address [address] [facility] [address] [place] [address] Care Team Providers Care Fuse Assembler Name Role Phone PcpSamina Unassigned Primary Care Provider U navailable Allergies No known active allergies Medications meloxicam (Mobic) 15 MG tablet Take 15 mg by mouth. Active hydroCHLOROthiaz cliff (HYDRODiuril) 25 MG tablet Take 25 mg by mouth in the morning. Active Misc Natural Products (GLUCOSAMINE CHOND MSM FORMULA PO) Take by mouth. Active Immunizations Immunization Administration Dates Next Due TD (adult), 2 [...] 2023 01/01/2022, 07/09/2021, 02/06/2021, Additional history exists Tobacco Screening 01/15/2024 01/14/2023 Dental X-Ray: Bitewings 01/16/2024 01/15/20 23, 01/04/2022, 12/25/2020, Additional history exists Influenza Vaccine (#1) 2024 Dental X-Ray: Full Mouth 01/05/2025 022, 10/03/2012, [...] patient's age to complete this topic Meningococcal B Vaccine Aged Out No l onger eligible based on patient's age to complete [...] DENTAL - HSN PARTIAL (MEDICAID) Care Teams Fuse Assembler Relationship Specialty Start Date End Date PcpSamina Unassigned PCP - General Family Medicine 07/19/22
--- OUTSIDE RECORDS SUMMARY | 2024-11-23 15:36 | XMS_ITS | Encounter Summary ---
Author Organization [employer] Address [address] [facility] [address] [place] [address] Care Team Providers Care Custom Car Builder Name Role Phone Samina Chisholm Unassradha Primary [...] on filedocumented in this encounter Care Teams Custom Car Builder Relationship Specialty Start Date End Date Samina Chisholmssradha PCP - General Family Medicine 07/19/22 documented as of this encounter
[2024-11-23 18:02] LABS: NRBC Abs Auto 0.000 X10*3/uL (0.0-0.012); NRBC Pct Auto 0.0 /100WBC (0.0-0.2)
[2024-11-23 18:04] LABS: Hematocrit 46.5 % (42.0-52.0); Hemoglobin 15.5 g/dl (14.0-18.0); Mean Corpuscular HGB Conc 33.3 g/dl (31.0-36.0); Mean Corpuscular Hemoglobin 31.3 pg (27.0-33.0); Mean Corpuscular Volume 93.9 fL (80.0-98.0); Platelet Count 150 X10*3/uL (160-400); Red Blood Count 4.95 X10*6/uL (4.60-5.80); White Blood Count 5.2 X10*3/uL (4.8-10.8)
[2024-11-23 18:08] LABS: Hemoglobin A1C 152.8153 umol/L; Total Hemoglobin (HGBA1C) 3950.5854 umol/L
[2024-11-23 18:14] LABS: PLT ABN DIST 1
== END 2024-11-23 15:35 | disposition home or self-care (01) ==
LOC: HO.WFDLDS 15:34
PROVIDERS: Visit Provider Nurse Practitioner Family
DX: Z00.00 Encounter for general adult medical examination without abnormal findings (principal); Z13.1 Encounter for screening for diabetes mellitus
CPT/HCPCS: 36415; 83036; 85027

== ENCOUNTER 2024-12-04 11:42 | Outpatient (AMB) | payer MEDICARE, OTHER, SELFPAY ==
--- NOTE | 2024-12-04 11:58 | MHC.PC.OV ---
Vital Signs 12/04/24 12:06 Height 5 ft 11 in Weight 192 lb BMI 26.8 BP 146/90 H Blood Pressure Location Rt brachial Position Sitting Respiration 16 Pulse 69 Pulse Source Pulse Oximeter Temp 97.7 F Temp Source Temporal Artery Scan Pulse Oximetry (%) 96 Oxygen Delivery Method Room Air Intake Visit Reasons: 6 months 30 min fu prediabetes, cbc Intake Note: Nolberto presents in the office for a 6 month follow up to pre-diabetes. Allergies No Known Allergies Allergy (Verified 12/04/24 12:01) Medication List - Last Reconciled 12/04/24 by Jose Manuel Zapata MD cephalexin 500 mg PO Q6H finasteride 5 mg PO DAILY 90 days latanoprost 0.005% drps ophthalmic (eye) methylprednisolone (Medrol) 4 mg PO DAILY PRN Tobacco use date assessed: 12/04/24 Fall risk assessment: No Falls in past year Last assessed Fall Risk: 12/04/24 Dental Screening Dental Screen Date: 12/04/24 Did you have a dental visit in the last 12 months?: Yes Did you have a dental problem in the last 6 months where you did not have access to dental care?: No Was dental information given to patient?: Patient has dentist HPI 6 months 30 min fu prediabetes, cbc HPI Details 79 y/o male presents to f/u chronic conditions. Hx of prediabetes. A1c 11/23/24 5.7%. Blood pressure today 146/90, 69p. Hx of CAD. HPI Comments History of Present Illness Details Documentation assistance for Jose Manuel Zapata MD, was provided by Prasanna Burgos,? Stone Trimmer on at 12:22 PM EST. I, Dr. Zapata, have read, observed, and verified documentation. ?? 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 1. Little interest or pleasure in doing things: not at all 2. Feeling down, depressed, or hopeless: several days 3. Trouble falling or staying asleep, or sleeping too much: several days 4. Feeling tired or having little energy: several days 5. Poor appetite or overeating: not at all 6. Feeling bad about yourself - or that you are a failure or have let yourself or your family down: not at all 7. Trouble concentrating on things, such as reading the newspaper or watching television: not at all 8. Moving or speaking so slowly that other people could have noticed. Or the opposite - being so fidgety or restless that you have been moving around a lot more than usual: not at all 9. Thoughts that you would be better off or of hurting yourself in some way: not at all Total score: 3 Source: Developed by Drs. Catarino Castro, Sallie Morel, Luis F Mahoney and colleagues, with an educational nghia from [employer]. Thrive Questionnaire Date Thrive assessed: 12/01/24 I am a: Patient What is your living situation today?: I have a steady place to live Within the past 12 months, did the food you bought not last and you didn't have the money to get more?: Never true Within the past 12 months, did you worry whether your food would run out before you got money to buy more?: Never true Do you have trouble paying for medicines?: No Do you have trouble getting transportation to medical appointments?: No Do you have trouble paying your heating and electricity bill?: No Do you have trouble taking care of your child, family member or friend?: No Do you have trouble with day-to-day activities such as bathing, preparing meals, shopping, managing finances, etc.?: No Are you currently unemployed and looking for a job?: No Are you interested in more education?: Yes Please select the resources that you would like help with: None Currently or been in a relationship where the following occur: No concerns reported THRIVE Score: 0 AUDIT C Alcohol Use Questionnaire (AUDIT-C) 1. How often do you have a drink containing alcohol?: 4 or more times a week Total Score: 4 VANI-7 AMB Questionnaire VANI-7 Date VANI - 7 assessed: 11/14/23 Feeling nervous, anxious, or on edge: 0 = Not at all Not being able to stop or control worryin = Several days Worrying too much about different things: 0 = Not at all Trouble relaxin = Several days Being so restless that it is hard to sit still: 0 = Not at all Becoming easily annoyed or irritable: 0 = Not at all Feeling afraid as if something awful might happen: 0 = Not at all Total VANI-7 score (0-4 normal; 5-9 mild; 10-14 moderate; 15-21 severe): 2 Source: Developed by Drs. Catarino Castro, Sallie Morel, Luis F Mahoney and colleagues, with an educational nghia from [employer]. Review of Systems Const Denies chills, Denies fatigue, Denies fever(s), Denies headache(s) and Denies weakness ENT Denies dizziness and Denies headache(s) Card Denies dyspnea Resp Denies cough, Denies dyspnea, Denies wheezing and Denies other (shortness of breath) Musc Denies numbness and Denies tingling Neuro Denies dizziness, Denies headache(s), Denies numbness, Denies tingling and Denies weakness Psych Denies anxiety and Denies depression Endo Denies fatigue Aller/Immun Denies wheezing Physical exam (Primary Care) Vital Signs: Last Vital Signs Temp 97.7 F 12/04/24 12:06 Pulse 69 12/04/24 12:06 Resp 16 12/04/24 12:06 BP 146/90 H 12/04/24 12:06 Pulse Ox 96 12/04/24 12:06 Oxygen Delivery Method Room Air 12/04/24 12:06 BMI result Body Mass Index 26.8 Tobacco/Smoking Status: Tobacco use Status Tobacco use date assessed 12/04/24 12/04/24 12:10 Patient Tobacco Use Status Never used Tobacco 12/04/24 12:06 e-Cigarette/Vaping Use Never Used 12/04/24 12:06 PHQ-9: PHQ-9 Score PHQ-9: Total score 3 12/04/24 12:22 Thrive Assessment: Date of Thrive Assessment Date Thrive assessed 12/01/24 12/04/24 11:59 Currently or been in a relationship where the following occur: No concerns reported Const General: well developed; No acute distress Nutritional Appearance: well nourished Orientation/consciousness: patient oriented x3 HENMT Head: Yes normocephalic and Yes atraumatic Eyes General: appearance normal, both eyes and all related structures Pupils: Equal, round and reactive pupils present EOM: EOMs intact bilaterally Resp Effort & Inspection: normal respiratory effort Auscultation: clear to auscultation bilaterally Cardio Rate: regular rate Rhythm: regular rhythm Heart sounds: S1 normal heart sound present, S2 normal heart sound present, no gallops, no murmurs and no rubs Neuro General: patient oriented x3 and gait normal Cranial nerves: Yes Equal, round and reactive pupils present Psych Affect: normal affect Coding Level of Care Code Est Pt Level 4 (22767) Diagnoses Hypertension I10 Prediabetes R73.03 CAD (coronary artery disease) I25.10 Screening for prostate cancer Z12.5 Assessment & Plan Assessment & Plan (1) Hypertension: Code(s): I10 - Essential (primary) hypertension Category: Medical Plan: Blood pressure is elevated X-ray of lumbar spine did note mild atherosclerotic disease. Goal for blood pressures less than 130/80 Start losartan (2) Prediabetes: Code(s): R73.03 - Prediabetes Category: Medical Plan: A1c improved from 6.1% to 5.7% Continue diet low in sugars and starches (3) CAD (coronary artery disease): Comment: noted on lumbar spine xray 06/2024 Mild calcified atherosclerotic disease Code(s): I25.10 - Atherosclerotic heart disease of [place] coronary artery without angina pectoris Category: Medical Plan: Lumbar spine x-ray shows mild calcified atherosclerotic disease Mild, stable Asymptomatic Will manage his other risk factors/comorbidities (4) Screening for prostate cancer: Code(s): Z12.5 - Encounter for screening for malignant neoplasm of prostate Category: Medical Plan Followed by urology. He does have BPH and is now on finasteride Orders: Orders Microalbumin, Random (w Creat) Today I10 - Essential (primary) hypertension Basic Metabolic Panel Today I10 - Essential (primary) hypertension, Z00.00 - Encounter for general adult medical examination without abnormal findings Medications: New losartan 25 mg PO DAILY 90 tabs 3RF 90 days
[2024-12-04 12:06] VITALS: BP 146/90; PULSE 69; RESP 16; TEMP 36.5; O2SAT 96; BMI 26.8
--- OUTSIDE RECORDS SUMMARY | 2024-12-04 15:55 | XMS_ITS | Encounter Summary ---
Author Organization [employer] Address [address] [facility] [address] [place] [address] Care Team Providers Care Digital Commentator Name Role Phone Samina Chisholm Unassradha Primary [...] on filedocumented in this encounter Care Teams Digital Commentator Relationship Specialty Start Date End Date Samina Chisholmssradha PCP - General Family Medicine 07/19/22 documented as of this encounter
--- OUTSIDE RECORDS SUMMARY | 2024-12-04 15:55 | XMS_ITS | Clinical Summary ---
Author Organization [email or web address] Address [address] [facility] [address] [place] [address] Care Team Providers Care Fitness Instructor Name Role Phone PcpSamina Unassigned Primary Care [...] 01/14/2023, 1 , 06/29/2021, Additional history exists Tobacco Screening 01/15/2024 01/14/2023 Dental X-Ray: Bitewings 01/16/2024 01/15/20 23, 01/04/2022, 12/25/2020, Additional history exists COVID-19 Vaccine ( season) 2024 01/01/2022, 07/09/2021, 02/06/2021, Additional history exists Influenza Vaccine (#1) 2024 [...] DENTAL - HSN PARTIAL (MEDICAID) Care Teams Fitness Instructor Relationship Specialty Start Date End Date PcpSamina Unassigned PCP - General Family Medicine 07/19/22
--- OUTSIDE RECORDS SUMMARY | 2024-12-04 15:55 | XMS_ITS | Encounter Summary ---
Author Organization [employer] Address [address] [facility] [address] [place] [address] Care Team Providers Care Raspberry Checker Name Role Phone Samina Chisholm Unassradha Primary [...] on filedocumented in this encounter Care Teams Raspberry Checker Relationship Specialty Start Date End Date Samina Chisholmssradha PCP - General Family Medicine 07/19/22 documented as of this encounter
== END 2024-12-04 12:53 | disposition home or self-care (01) ==
LOC: HO.HMCFM 11:43
PROVIDERS: PCP Family Medicine; Visit Provider Family Medicine
DX: I10 Essential (primary) hypertension (principal); R73.03 Prediabetes; I25.10 Atherosclerotic heart disease of native coronary artery without angina pectoris; Z12.5 Encounter for screening for malignant neoplasm of prostate

== ENCOUNTER → 2024-12-04 11:42 | Outpatient (BNVA) | payer MEDICARE, OTHER, SELFPAY | PROVIDERS: PCP Family Medicine; Visit Provider Family Medicine | DX: I10 Essential (primary) hypertension (principal); R73.03 Prediabetes; I25.10 Atherosclerotic heart disease of native coronary artery without angina pectoris | CPT/HCPCS: 99212 ==

== ENCOUNTER 2025-03-06 09:21 | Outpatient (AMB) | payer MEDICARE, OTHER, SELFPAY ==
--- NOTE | 2025-03-06 09:23 | MHC.PC.OV ---
Vital Signs 03/06/25 09:31 03/06/25 09:46 Height 5 ft 11 in Weight 190 lb 4 oz BMI 26.5 BP 173/90 H 146/94 H Blood Pressure Location Lt brachial Rt brachial Position Sitting Sitting Respiration 16 Pulse 66 Pulse Source Pulse Oximeter Temp 97.6 F Temp Source Oral Pulse Oximetry (%) 98 Oxygen Delivery Method Room Air Intake Visit Reasons: f/u HTN Intake Note: patient here for follow up on HTN Special Equipment Technician Required: No Allergies No Known Allergies Allergy (Verified 03/06/25 09:26) Medication List - Last Reconciled 03/06/25 by Jose Manuel Zapata MD finasteride 5 mg PO DAILY 90 days latanoprost 0.005% drps ophthalmic (eye) losartan 25 mg PO DAILY 90 days timolol maleate 0.5% 1 drp ophthalmic-Right QAM Tobacco use date assessed: 03/06/25 Fall risk assessment: No Falls in past year Last assessed Fall Risk: 03/06/25 Dental Screening Dental Screen Date: 03/06/25 Did you have a dental visit in the last 12 months?: Yes Did you have a dental problem in the last 6 months where you did not have access to dental care?: No Was dental information given to patient?: Patient has dentist HPI f/u HTN HPI Details 79 y/o male presents to f/u HTN. Blood pressure today 173/90, 66p. He is on losartan 25mg daily. Complaints of low back pain. Pt notes a couple years ago he had lifted something he felt he shouldn't have. HPI Comments History of Present Illness Details Documentation assistance for Jose Manuel Zapata MD, was provided by Prasanna Burgos, [employer] on 03/06/2025 at 9:52 AM EST. I, Dr. Zapata, have read, observed, and verified documentation. 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 Current occupational exposures/hazards: Yes Cognitive needs: No Hearing needs: No Vision needs: Yes Questionnaire Thrive Questionnaire Date Thrive assessed: 12/01/24 I am a: Patient What is your living situation today?: I have a steady place to live Within the past 12 months, did the food you bought not last and you didn't have the money to get more?: Never true Within the past 12 months, did you worry whether your food would run out before you got money to buy more?: Never true Do you have trouble paying for medicines?: No Do you have trouble getting transportation to medical appointments?: No Do you have trouble paying your heating and electricity bill?: No Do you have trouble taking care of your child, family member or friend?: No Do you have trouble with day-to-day activities such as bathing, preparing meals, shopping, managing finances, etc.?: No Are you currently unemployed and looking for a job?: No Are you interested in more education?: Yes Please select the resources that you would like help with: None Currently or been in a relationship where the following occur: No concerns reported THRIVE Score: 0 VANI-7 AMB Questionnaire VANI-7 Date VANI - 7 assessed: 11/14/23 Source: Developed by Drs. Catarino Castro, Sallie Morel, Luis F Mahoney and colleagues, with an educational nghia from [employer]. Review of Systems Const Denies chills, Denies fatigue, Denies fever(s), Denies headache(s) and Denies weakness ENT Denies dizziness and Denies headache(s) Card Denies dyspnea Resp Denies cough, Denies dyspnea, Denies wheezing and Denies other (shortness of breath) Musc Reports back pain, Denies numbness and Denies tingling Neuro Denies dizziness, Denies headache(s), Denies numbness, Denies tingling and Denies weakness Psych Denies anxiety and Denies depression Endo Denies fatigue Aller/Immun Denies wheezing Physical exam (Primary Care) Vital Signs: Last Vital Signs Temp 97.6 F 03/06/25 09:31 Pulse 66 03/06/25 09:31 Resp 16 03/06/25 09:31 BP 146/94 H 03/06/25 09:46 Pulse Ox 98 03/06/25 09:31 Oxygen Delivery Method Room Air 03/06/25 09:31 BMI result Body Mass Index 26.5 Tobacco/Smoking Status: Tobacco use Status Tobacco use date assessed 03/06/25 03/06/25 09:32 Patient Tobacco Use Status Never used Tobacco 03/06/25 09:26 e-Cigarette/Vaping Use Never Used 03/06/25 09:26 Thrive Assessment: Date of Thrive Assessment Date Thrive assessed 12/01/24 03/06/25 09:26 Currently or been in a relationship where the following occur: No concerns reported Const General: well developed; No acute distress Nutritional Appearance: well nourished Orientation/consciousness: patient oriented x3 HENMT Head: Yes normocephalic and Yes atraumatic Eyes General: appearance normal, both eyes and all related structures Pupils: Equal, round and reactive pupils present EOM: EOMs intact bilaterally Resp Effort & Inspection: normal respiratory effort Neuro General: patient oriented x3 and gait normal Cranial nerves: Yes Equal, round and reactive pupils present Psych Affect: normal affect Coding Level of Care Code Est Pt Level 4 (54545) Diagnoses Hypertension I10 CAD (coronary artery disease) I25.10 Chronic midline low back pain without sciatica M54.50; G89.29 Back pain laterality: midline Chronicity: chronic Sciatica presence: without sciatica Assessment & Plan Assessment & Plan (1) Hypertension: Code(s): I10 - Essential (primary) hypertension Category: Medical Plan: Blood pressure is not at goal of less than 130/80. He also notes that he did not take his blood pressure medication today however he notes at home that blood pressures are still often above 130/80. Increase losartan from 25 mg daily to 50 mg daily Will have him come back for a nurse visit in week for follow-up (2) CAD (coronary artery disease): Comment: noted on lumbar spine xray 06/2024 Mild calcified atherosclerotic disease Code(s): I25.10 - Atherosclerotic heart disease of [place] coronary artery without angina pectoris Category: Medical Plan: Stable (3) Low back pain: Code(s): M54.50 - Low back pain, unspecified Category: Medical Qualifiers: Back pain laterality: midline Chronicity: chronic Sciatica presence: without sciatica Qualified Code(s): M54.50 - Low back pain, unspecified; G89.29 - Other chronic pain Plan: Patient notes low back pain in the morning Demonstrated exercises He can start physical therapy If not improving will get imaging and consider referral. Orders: Orders Comprehensive [place]. Panel Fast 6 Weeks Z00.00 - Encounter for general adult medical examination without abnormal findings Lipid Panel 6 Weeks Z00.00 - Encounter for general adult medical examination without abnormal findings Microalbumin, Random (w Creat) 6 Weeks I10 - Essential (primary) hypertension Prostate Specific Antigen Scr 6 Weeks Z12.5 - Encounter for screening for malignant neoplasm of prostate UA CC w/rflx Micro + Cult 6 Weeks Z00.00 - Encounter for general adult medical examination without abnormal findings PT Evaluation and Treatment Today G89.29 - Other chronic pain, M54.50 - Low back pain, unspecified Basic Metabolic Panel Today I10 - Essential (primary) hypertension, Z00.00 - Encounter for general adult medical examination without abnormal findings Complete Blood Count Auto Diff 6 Weeks Z00.00 - Encounter for general adult medical examination without abnormal findings TSH reflex Free T4 6 Weeks Z00.00 - Encounter for general adult medical examination without abnormal findings Medications: Changed From losartan 25 mg PO DAILY 90 days 90 tabs 3RF To losartan 50 mg PO DAILY 90 tabs 3RF 90 days
[2025-03-06 09:31] VITALS: BP 173/90; PULSE 66; RESP 16; TEMP 36.4; O2SAT 98; BMI 26.5
[2025-03-06 09:46] VITALS: BP 146/94
--- OUTSIDE RECORDS SUMMARY | 2025-03-06 10:39 | XMS_ITS | Encounter Summary ---
Author Organization [employer] Address [address] [place] [address] Care Team Providers Care Paper Coater Name Role Phone Samina Chisholm Unassradha Primary [...] on filedocumented in this encounter Care Teams Paper Coater Relationship Specialty Start Date End Date Samina Chisholmssradha PCP - General Family Medicine 07/19/22 02/20/25 documented as of this encounter
--- OUTSIDE RECORDS SUMMARY | 2025-03-06 10:39 | XMS_ITS | Clinical Summary ---
Author Organization [employer] Address [address] [place] [address] Care Team Providers Care Print Press Operator Name Role Phone Unavailable Primary Care Provider Unavailabl e Allergies No known active allergies Medications meloxicam [...]
--- OUTSIDE RECORDS SUMMARY | 2025-03-06 10:39 | XMS_ITS | Encounter Summary ---
Author Organization [employer] Address [address] [place] [address] Care Team Providers Care Radio Sportscaster Name Role Phone Samina Chisholm Unassradha Primary [...] on filedocumented in this encounter Care Teams Radio Sportscaster Relationship Specialty Start Date End Date Samina Chisholmssradha PCP - General Family Medicine 07/19/22 02/20/25 documented as of this encounter
== END 2025-03-06 10:02 | disposition home or self-care (01) ==
LOC: HO.HMCFM 09:23
PROVIDERS: PCP Family Medicine; Visit Provider Family Medicine
DX: I10 Essential (primary) hypertension (principal); I25.10 Atherosclerotic heart disease of native coronary artery without angina pectoris; M54.50 Low back pain, unspecified; G89.29 Other chronic pain

== ENCOUNTER → 2025-03-06 09:21 | Outpatient (BNVA) | payer MEDICARE, OTHER, SELFPAY | PROVIDERS: PCP Family Medicine; Visit Provider Family Medicine | DX: I10 Essential (primary) hypertension (principal); I25.10 Atherosclerotic heart disease of native coronary artery without angina pectoris; M54.50 Low back pain, unspecified; G92.9 Unspecified toxic encephalopathy; Z79.899 Other long term (current) drug therapy | CPT/HCPCS: 99212 ==